=== PATIENT | male | born 1945 | race Caucasian/White ===

== ENCOUNTER 2024-04-16 11:08 | Emergency (ER) | payer OTHER, SELFPAY ==
[2024-04-16 11:11] VITALS: BP 115/73
--- NOTE | 2024-04-16 11:43 | ED.GENMED ---
History of Present Illness
General
Chief Complaint: Fall
Source: patient and spouse
Time Seen by Provider: 04/16/24 11:34
Travel History
Have you had any contact with someone who has COVID-19?: No
Do you have any symptoms of coronavirus? Fever > 100 degrees, chills, cough, shortness of breath, sore throat, loss of taste or smell, muscle aches, or headache?: No
History of Present Illness
History of Present Illness:
79-year-old male presents to the emergency room after suffering a fall. Patient states he tripped while moving trash cans. He fell forward and has pain in his right hand and also landed on his right face where he has abrasions. No loss of
consciousness. Patient does not take any anticoagulants. He denies any nausea or vomiting. His tetanus is up-to-date.
Past History
Past History
ED Past Medical History: Cancer (breast), HTN, Hypercholesterolemia and Hypothyroidism
ED Past Surgical History: Other (Right mastectomy)
Phy Exam
Physical Exam
Physical Exam:
General: Awake, Alert, Oriented X3. No acute distress.
Vitals: unremarkable
Head: Abrasions noted right eyebrow, lateral to orbit and inferior to orbit
Eyes: Pupils equal, EOMI
Throat: Airway intact, no exudates
Neck: Trachea midline
Lungs: Clear and equal b/l
Heart: Regular rate, no murmurs
Abd: Soft, Nontender, No pulsatile mass
Neuro: Cranial nerves intact, muscle strength equal bilaterally
Skin: Warm, dry, no rash
Extremities: pulses equal b/l, no edema. Pain mild ecchymosis noted right hand distal fourth metacarpal are tender to palpation. Patient has mild discomfort with range of motion of the right shoulder.
Course
Orders/Labs/Results
Orders:
Orders
04/16/24 11:40
CT Head W/o Iv Contrast Urgent
Comment:
Reason For Exam: head injury after a fall
Facial Bones wo Contrast CT [CT Facial Bones W/o Iv Contras] Urgent
Comment:
Reason For Exam: fall, facial injury
Hand, Right 3 View [CR Hand - Right Min 3 Views] Urgent
Comment:
Reason For Exam: pain after a fall
04/16/24 12:01
Shoulder, Right, Trauma [CR Shoulder, Trauma - Right] Urgent
Comment:
Reason For Exam: fall, shoulder replacement history
04/16/24 14:31
Acetaminophen [Tylenol] 650 mg PO NOW STA
Vital Signs
Initial and Last Documented VS:
Initial Vital Signs
Temp Pulse Resp BP Pulse Ox
98.1 F 69 18 115/73 97
04/16/24 11:11 04/16/24 11:11 04/16/24 11:11 04/16/24 11:11 04/16/24 11:11
Last Documented Vital Signs
Temp Pulse Resp BP Pulse Ox
98.1 F 69 18 115/73 97
04/16/24 11:11 04/16/24 11:11 04/16/24 11:11 04/16/24 11:11 04/16/24 11:11
MDM/Problems Addressed
Differential Diagnosis Includes:
Humerus fracture, closed head injury, presents, contusion
MDM/Problems Addressed:
Patient presents after a fall. No LOC. CT and plain films here show no acute abnormalities. Patient at his baseline. Stable for discharge home.
*Radiology
Radiology exam reviewed: radiology read reviewed
*Pulse Oximetry
Patient hypoxic: no
*Critical Care Note
Total Time (30-74mins, 75-104mins- exclusive of procedures): Not Applicable
Patient Management
Social determinants of health affecting care: Living situation
ED Attending Note
-
Portions of this chart may have been created with voice recognition software.� Occasional wrong word or��sound alike� substitutions may have occurred due to the inherent limitations of voice recognition software.
Discharge Plan
Departure
Patient Disposition: Home (Routine Discharge)
Date of Disposition: 04/16/24
Time of Disposition: 13:53
Patient with high blood pressure during this ER visit?: No
Condition: Good
Discharge Problem:
Head injury, Abrasion of face, Fx metacarpal
Instructions: Head Injury in Adults (DC), Skin Abrasions (DC)
Prescriptions:
No Action
losartan 50 mg Tablet
50 mg PO HS
cyclobenzaprine 10 mg Tablet
10 mg PO HS
cetirizine [Zyrtec] 10 mg Tablet
10 mg PO DAILY
cyanocobalamin (vitamin B-12) [Vitamin B-12] 1,000 mcg Tablet
1,000 mcg PO DAILY
aspirin 81 mg Tablet,Delayed Release (Dr/Ec)
81 mg PO DAILY
levothyroxine [Synthroid] 25 mcg Tablet
25 mcg PO DAILY
oxycodone-acetaminophen [Percocet] 5-325 mg Tablet
1 tab PO Q4H PRN (Reason: severe pain)
omeprazole 20 mg Capsule,Delayed Release(Dr/Ec)
20 mg PO DAILY
metoprolol succinate [Toprol XL] 25 mg Tablet Extended Release 24 Hr
25 mg PO HS
albuterol sulfate 90 mcg/actuation Hfa Aerosol Inhaler
2 puff INHALATION Q6H PRN (Reason: shortness of breath)
oxybutynin chloride 5 mg Tablet
5 mg PO DAILY
tamoxifen 20 mg Tablet
20 mg PO DAILY
finasteride [Proscar] 5 mg Tablet
5 mg PO DAILY
coenzyme Q10 [CoQ-10] 100 mg Capsule
200 mg PO DAILY
alfuzosin 10 mg Tablet Extended Release 24 Hr
10 mg PO DAILY
metformin 1,000 mg Tablet Extended Release 24hr
1,000 mg PO BID
cholecalciferol (vitamin D3) [Vitamin D3] 25 mcg (1,000 unit) Tablet
25 mcg PO DAILY
budesonide-formoterol [Symbicort] 80-4.5 mcg/actuation Hfa Aerosol Inhaler
2 puff INHALATION BID
Praluent Pen 75 mg/mL Pen Injector
75 mg SC Q14D
Referrals:
Bong Messina DO [Family Provider] -
Hollis Hollingsworth MD [Active] -
Activity Restrictions/Additional Instructions:
The x-rays of the hand show s broken bone in the hand. I have given you the number for a hand specialist to follow up with.
Interventions
Interventions:
*Risk Screen - Suicide Last Done: 04/16/24 12:03
*General Assessment Last Done: 04/16/24 12:03
*Neglect/Abuse Screening Last Done: 04/16/24 12:03
*ED COVID-19 Vaccine History Last Done: 04/16/24 12:03
*Nursing Disposition Last Done: 04/16/24 14:43
ED-Musculoskeletal Assessment Last Done: 04/16/24 12:03
ED- Neurological Assessment Last Done: 04/16/24 12:03
ED-Skin Assessment Last Done: 04/16/24 12:03
Discharge Date and Time
Discharge Date/Time: 04/16/24 14:46
Print Language: UKRAINIAN
[2024-04-16] MEDS: TYLENOL 650 MG PO (14:33)
== END 2024-04-16 14:46 | disposition home or self-care (01) ==
LOC: EMR 11:08
PROVIDERS: EMERGENCY PHYSICIAN Emergency Medicine; FAMILY PHYSICIAN Family Medicine
DX: S62.304A Unspecified fracture of fourth metacarpal bone, right hand, initial encounter for closed fracture (principal); S60.221A Contusion of right hand, initial encounter; S00.211A Abrasion of right eyelid and periocular area, initial encounter; S09.90XA Unspecified injury of head, initial encounter; M25.511 Pain in right shoulder; W01.0XXA Fall on same level from slipping, tripping and stumbling without subsequent striking against object, initial encounter; Y93.89 Activity, other specified; I10 Essential (primary) hypertension; E78.00 Pure hypercholesterolemia, unspecified; E03.9 Hypothyroidism, unspecified; Z85.3 Personal history of malignant neoplasm of breast; Z90.11 Acquired absence of right breast and nipple; Z96.611 Presence of right artificial shoulder joint
CPT/HCPCS: 99284; 29125; 70450; 70486; 73030; 73130

== ENCOUNTER 2024-06-13 10:04 | Inpatient (IN) | payer OTHER, SELFPAY ==
[2024-06-09 12:37] VITALS: BP 114/64
--- NOTE | 2024-06-09 13:20 | ED.GENMED ---
History of Present Illness
General
Chief Complaint: Fall
Source: patient
Exam Limitations: none
Time Seen by Provider: 06/09/24 13:20
Nursing documentation reviewed up to this point in time: agreed with
History of Present Illness
History of Present Illness:
79-year-old male presenting emergency department today with concerns of headache and back pain following a fall. Patient uses a cane at baseline. Patient reports that he was walking to to the grocery store today in the parking lot and was walking
up a ramp and reaching up to grab a metal pole to support him when he missed the pole and fell back, hitting the back of his head and his back. Patient required help from bystanders to get up and he is not able to ambulate without assistance or
pain. His was called he picked him up and took him to emergency department. Patient denies any dizziness or lightheadedness but does note a headache, back pain with any movement, also notes some right lower rib pain. Patient states that this
pain is worse when he takes a deep breath. Patient denies any other injuries, denies any chest pain, denies any lower extremity pain. Patient denies any upper or lower extremity numbness or tingling.
Past History
Past History
ED Past Medical History: Cancer (breast), HTN, Hypercholesterolemia and Hypothyroidism
ED Past Surgical History: Other (Right mastectomy)
Review of Systems
Review of Systems
All Other Systems: ROS reviewed and negative except as documented in HPI and ROS
Phy Exam
Physical Exam
Physical Exam:
General: Patient is well appearing and in no acute distress; non-toxic
Skin: Warm and dry, linear abrasion noted to left parathoracic region.
Head: Normocephalic, atraumatic. No palpable hematomas, no palpable bony deformities. No tenderness to palpation of the facial bones. TMJ joints intact bilaterally.
Eyes: Sclera non-icteric. EOMs intact. PERRLA.
Neck: Pain with passive range of motion of cervical spine. Tenderness to palpation of the cervical spine.
Cardiac: Regular rate, no tenderness to palpation of the external chest wall. No palpable crepitus.
Pulm: Normal respiratory effort
Abdomen: No abdominal tenderness to palpation, no areas of ecchymosis
Musculoskeletal: 5/5 strength in bilateral upper and lower extremities. No pain with ROM of bilateral upper and lower extremities. Midline spinal tenderness in the thoracolumbar spine.
Neuro: CN II-XII intact, no focal neurologic deficits. Normal finger to nose, heel to flores testing.
Psychiatric: Appropriate mood and affect.
Course
Orders/Labs/Results
Orders:
Orders
06/09/24 13:50
CT Cervical Spine W/o Iv Contr Urgent
Comment:
Reason For Exam: neck pain following fall
06/09/24 13:51
CT Head W/o Iv Contrast Urgent
Comment:
Reason For Exam: headache following posterior head trauma
Acetaminophen [Tylenol] 1,000 mg PO NOW STA
CR Lumbar Spine Comp Min 4 Vw* Urgent
Comment:
Reason For Exam: low back pain following fall
CR Ribs-right 3 Vw W/pa Chest* Urgent
Comment:
Reason For Exam: right lower rib pain following fall
CR Thoracic Spine 3 Views Urgent
Comment:
Reason For Exam: mid back pain following fall
06/09/24 Dinner
1800 calorie (15 carb) Diabetic
At Your Request: Full Participation
06/09/24 15:46
Pt Eval And Treat Urgent
Activity Level: With Assistance
06/09/24 15:55
Case Management Consult ONCE
Case Management Consult: VN/Home Care
Oxycodone [Roxicodone] 5 mg PO NOW STA
06/09/24 17:48
Complete Blood Count/With Diff Urgent
Comprehensive Metabolic Panel Urgent
06/09/24 18:19
Admit/Transfer Patient As Directed
Co-Sign Provider:
Level of Care: Observation services
Assign to:: Medical/Surgical
Physician / Group: vignesh chavez
Diagnosis: mechn fall with amb dysfunction
06/09/24 18:20
Code Status As Directed
Resuscitation Status: Full Code
06/09/24 18:24
PRN Pain Medication Management As Directed
May give lesser potent ordered pain med per pt: Yes
preference::
Protocol:: Medication orders for pain may be administered in a
manner that supports deferring to patient preference
when the pt is:
- Requesting an ordered lesser potent pain medication.
Least to most potent pain medications are defined
as: acetaminophen < NSAID < tramadol < opioids
(morphine, oxycodone, hydromorphone).
- Requesting a lesser dose of the same medication IF
ORDERED.
- Requesting a less intrusive route of administration
if both routes are prescribed by the provider (PO <
IV).
06/09/24 19:21
Acetaminophen [Tylenol] 650 mg PO Q4HPRN PRN
Albuterol [ProAIR HFA INHALER] 2 puff INH R Q6HPRN PRN
Dextrose 50%-Water [Dextrose 50% Syringe] 12.5 grams IV [id number] PRN
Glucagon [GlucaGen] 1 mg IM PRN PRN
Meclizine [Antivert] 12.5 mg PO BIDPRN PRN
Oxycodone [Roxicodone] 5 mg PO Q4HPRN PRN
06/09/24 19:21
Activity As Directed
Activity Level: With Assistance
Bedside Glucose Monitoring As Directed
Frequency: AC&HS
Additional Instructions:: Change to q6h if pt on TPN, tube feeding or not eating
Sequential Compression Device [Pneumatic Compression Sleeves] As Directed
Type: Knee high
Vital Signs As Directed
Frequency: Per unit guidelines
Ot Eval And Treat Routine
DX Deep Vein Thrombosis Video Routine
DX Deep Vein Thrombosis Video Routine
06/09/24 20:00
Budesonide/Formoterol 80/4.5 [Symbicort 80/4.5 Mcg Inhaler] 2 puff INH R BID
Metformin Extended Release [Glucophage Xr Extended Release] 1,000 mg PO BID AT 0800,1700
06/09/24 22:00
Cetirizine HCl [Zyrtec] 10 mg PO HS
Cyclobenzaprine HCl [Flexeril] 10 mg PO HS
Losartan [Cozaar] 50 mg PO HS
Metoprolol Xl [Toprol Xl] 25 mg PO HS
06/10/24 06:00
CT Head W/o Iv Contrast IN AM
Comment:
Reason For Exam: repeat due to fall
Levothyroxine [Synthroid] 25 mcg PO DAILY @ 0600
06/10/24 06:10
Basic Metabolic Panel IN AM
Complete Blood Count/With Diff IN AM
Glycohemoglobin (HgbA1c) IN AM
06/10/24 07:30
Insulin Aspart Corrective Low [Novolog Flexpen-Low Resistance] See Protocol SC AC
06/10/24 08:00
Ascorbic Acid [Vitamin C] 1,000 mg PO DAILY
Aspirin Low Dose EC [Aspir Low (Enteric Coated)] 81 mg PO DAILY
Cholecalciferol (Vitamin D3) [VITAMIN D3 (cholecalciferol)] 25 mcg PO DAILY
Cyanocobalamin [Vitamin B-12] 1,000 mcg PO DAILY
Escitalopram Oxalate [Lexapro] 10 mg PO DAILY
Finasteride [Proscar] 5 mg PO DAILY
Oxybutynin Chloride [Ditropan] 5 mg PO DAILY
Pantoprazole [Protonix] 40 mg PO DAILY
Tamoxifen [Nolvadex] 20 mg PO DAILY
Tamsulosin [Flomax] 0.4 mg PO DAILY
coenzyme Q10 [CoQ-10] 200 mg PO DAILY
Abnormal Lab Results
06/09/24
17:48
RBC 4.11 L 10^6/uL
(4.70-6.10)
Hgb 12.8 L g/dL
(13.0-18.0)
Hct 36.0 L %
(39.0-52.0)
MCH 31.1 H pg
(27.0-31.0)
Abs Immat Gran (auto) 0.1 H 10^3/uL
(0-0.05)
Absolute Neuts (auto) 8.5 H 10^3/uL
(1.4-6.5)
Absolute Monos (auto) 0.9 H 10^3/uL
(0.1-0.6)
Immature Gran % 0.9 H %
(0-0.5)
Neutrophils % 78.4 H %
(42.2-75.2)
Lymphocytes % 11.5 L %
(20.5-51.1)
Sodium 131 L mmol/L
(135-145)
Chloride 97 L mmol/L
(98-107)
Glucose 171 H mg/dl
(70-99)
Total Protein 5.9 L g/dl
(6.3-8.2)
Albumin 2.6 L g/dl
(3.5-5.0)
06/09/24 17:48
06/09/24 17:48
Vital Signs
Initial and Last Documented VS:
Initial Vital Signs
Temp Pulse Resp BP Pulse Ox
97.8 F 88 18 114/64 96
06/09/24 12:37 06/09/24 12:37 06/09/24 12:37 06/09/24 12:37 06/09/24 12:37
Last Documented Vital Signs
Temp Pulse Resp BP Pulse Ox
97.9 F 78 15 138/90 95
06/10/24 07:30 06/10/24 08:37 06/10/24 08:37 06/10/24 07:30 06/10/24 08:37
MDM/Problems Addressed
Differential Diagnosis Includes:
ddx include subdural hematoma, epidural hematoma, cervical fracture, thoracic fracture, lumbar fracture, contusion, rib fracture
MDM/Problems Addressed:
Mechanical Fall:
79-year-old male presenting emergency department today with concerns of headache and back pain following a fall. Patient uses a cane at baseline. Patient reports that he was walking to to the grocery store today in the parking lot and was walking
up a ramp and reaching up to grab a metal pole to support him when he missed the pole and fell back, hitting the back of his head and his back. CT of the head negative for acute intracranial abnormality, CT of the cervical spine negative for
fracture but does show extensive degenerative changes. Plain films negative for vertebral fracture. Patient was evaluated by physical therapy who recommends rehab in [facility] considering his significant pain and ambulatory dysfunction. Patient
evaluated by case management who recommends admit overnight for OT eval and for auth of rehab. Patient in agreement with this plan, case reviewed with my attending Dr. Miranda.
Chronic conditions affecting care:
CAD, HTN, diabetes
*Pulse Oximetry
Patient hypoxic: no
*Critical Care Note
Total Time (30-74mins, 75-104mins- exclusive of procedures): Not Applicable
Data Reviewed
Review of Other/Old Records Reveals: Records (reviewed ER physician documentation from 04/16/24 where patient was seen for fall and facial abrasion) and Discharge Summary (reviewed discharge summary from 06/27/22 where patient was admitted for
periprosthetic fracture )
Source: patient and records
Patient Management
Escalation/DeEscalation of care consider admission/obs:
Admit indicated.
Update Note
Update Note:
06/10/2024, 11:00 am-- Called patient's to update on presence of thyroid nodule on CT scan. Patient's reports that patient has had workup for this nodule at [facility] in the past and she states that everything in the workup
came back unremarkable.
ED Attending Note
-
Portions of this chart may have been created with voice recognition software.� Occasional wrong word or��sound alike� substitutions may have occurred due to the inherent limitations of voice recognition software.
Discharge Plan
Departure
Patient Disposition: Admit
Date of Disposition: 06/09/24
Time of Disposition: 17:28
Admit to: Med/Surg
Presentation/result/management discussed w/ accepting MD/DO: Hospitalist
Condition: Fair
Discharge Problem:
Fall, Ambulatory dysfunction
Interventions
Interventions:
*Risk Screen - Suicide Last Done: 06/09/24 12:37
*General Assessment Last Done: 06/09/24 12:37
*Neglect/Abuse Screening Last Done: 06/09/24 12:37
ED- Fall Risk Assessment Last Done: 06/09/24 14:16
*ED COVID-19 Vaccine History Last Done: 06/09/24 19:24
*Nursing Disposition Last Done: 06/09/24 19:24
ED-Musculoskeletal Assessment Last Done: 06/09/24 14:16
ED- Neurological Assessment Last Done: 06/09/24 14:16
ED-Skin Assessment Last Done: 06/09/24 14:16
Discharge Date and Time
Discharge Date/Time: 06/09/24 19:24
[2024-06-09] MEDS: TYLENOL 1000 MG PO (14:09)
[2024-06-09] MEDS: ROXICODONE 5 MG PO ×2 (16:07→21:28)
[2024-06-09 16:25] VITALS: BP 114/64; PULSE 88; O2SAT 96
--- NOTE | 2024-06-09 17:07 | CM ---
Alert awake oriented patient who lives with his [place] who lives in a 3 story home with 3 step to enter and bed and bathroom on first floor. He is independent in all activities of daily living.He uses a walker. He fell. PT narayan says needs SNF.
Spoke with pt and . Pt agreed with SNF . Choice given . Pt picked [facility] , [facility] , [facility], [place]. Referrals placed. ED RN and PA aware of above . Requested OT order . Pt aware will need auth after SNf located.
[facility] hx /No SNF hx
He uses a walker
Pharmacy [facility] Tadeo Mishra
PCP DR Messina
PLAN To SNf after located and auth obtained
[2024-06-09 17:54] LABS: % Basophils 0.4 % (0-2); % Eosinophils 0.7 % (0-6); % Immature Granulocytes 0.9 % (0-0.5); % Lymphocytes 11.5 % (20.5-51.1); % Monocytes 8.1 % (1.7-9.3); % Neutrophils 78.4 % (42.2-75.2); Absolute Eosinophils 0.1 10^3/uL (0-0.7); Absolute Immature Granulocytes 0.1 10^3/uL (0-0.05); Absolute Lymphocytes 1.2 10^3/uL (1.2-3.4); Absolute Monocytes 0.9 10^3/uL (0.1-0.6); Absolute Neutrophils 8.5 10^3/uL (1.4-6.5); Hemoglobin 12.8 g/dL (13.0-18.0); Mean Corp Hgb Conc. 35.6 g/dL (33.0-37.0); Mean Corpuscular Hgb 31.1 pg (27.0-31.0); Mean Corpuscular Volume 87.6 fL (80.0-94.0); Mean Platelet Volume 9.3 fL (7.4-10.4); Nucleated Red Blood Cells % 0 % (-); Platelet Count 137 10^3/uL (130-400); Red Blood Cell Count 4.11 10^6/uL (4.70-6.10); Red Cell Dist. Width 13.3 % (11.5-14.5); White Blood Cell Count 10.8 10^3/uL (4.8-10.8)
--- NOTE | 2024-06-09 18:09 | HPS.HSE ---
Addendum entered and electronically signed by Arnaldo Garcia MD 06/09/24 18:35:
I saw and examined the patient.
The CARPENTER MOLD or PA's note was reviewed and I agree with the note.
Comment:
79-year-old male presenting with headache and back pain after fall.� Patient uses cane at baseline, and was walking to the grocery store today and while attempting to grab a metal pole for support he missed and fell back, hitting the back of his
head and back. �No loss of consciousness, and he was assisted by bystanders to help get him up.� Denies any further dizziness, lightheadedness other than headache, back pain.� Does also note some lower right rib pain, no evidence of flail chest.�
Labs are pending.� Chest x-ray with severe DISH, moderately exaggerated thoracic kyphosis, no acute findings, no evidence of acute rib fractures, does have chronic healed left lateral rib fractures.� CT head unremarkable.� Patient worked with PT and
recommended SNF.� Lives at home with .� Admitted for observation.� Plan�disposition planning, pain control, repeat CT head in 12 hours.� Follow-up lab work.
Original Note:
Family Physician
-
Family Physician: Bong Messina
Chief Complaint
-
Fall, headache
History of Present Illness
79-year-old male who reportedly was walking to the grocery store in a parking lot up a ramp when he went to grab metal pole he missed and fell backward hitting the back of his head and back. Bystanders helped pick him up and place him in the car
with his to come to the ER for evaluation. He reports pain is worse when he takes a deep breath. He reports a headache but denies lightheadedness or dizziness. He states he has had history of recent chronic vertigo has been working with
physical therapy at home. He reports he did have episode of spinning sensation prior to fall today. He denies chest pain, palpitations, short breath, cough, abdominal pain, nausea, vomit, diarrhea, urinary symptoms. He had evaluation in the ER by
physical therapy who recommended SNF facility. He has past medical history of breast cancer with right mastectomy, HTN, HLD, hypothyroidism, DM 2, GERD, BPH, CAD/CABG, COPD, chronic muscle spasms, depression, seasonal allergies
Medical History
Past Medical History
Past Medical History: Reports Other
Additional Past Medical History:
Coronary Artery Disease
Essential Hypertension
Hyperlipidemia
Diabetes Mellitus, Type II
COPD
BPH
Sciatica
Hx Right Breast CA
Past Surgical History: Reports Other
Additional Past Surgical History:
Right Mastectomy
CABG
Right Reverse Total Shoulder Replacement
Social History
Tobacco: Former Smoker (Quit in the 1970s)
Alcohol: None
Personal:
Living: With Family
Family History
Family History: Not pertinent
Allergies / Home Medications
Allergies reflects when Allergies were last updated in [facility].
Home Medications with original date entered in [facility]
Allergy/Medication List:
Allergies
Allergy/AdvReac Type Severity Reaction Status Date / Time
atorvastatin [From Lipitor] AdvReac Mild Nausea / Verified 06/09/24 12:37
Vomiting
lisinopril AdvReac Mild cough Verified 06/09/24 12:37
Home Medications
albuterol sulfate 90 mcg/actuation aerosol inhaler 2 puff inhalation Q6H PRN shortness of breath 06/25/22
alfuzosin 10 mg tablet,extended release 24 hr 10 mg PO DAILY Urinary issue 06/25/22
alirocumab 75 mg/mL subcutaneous pen injector (Praluent Pen) 75 mg SC Q14D High cholesterol 06/25/22
aspirin 81 mg tablet,delayed release 81 mg PO DAILY Blood clot prevention/tx 06/25/22
budesonide-formoterol HFA 80 mcg-4.5 mcg/actuation aerosol inhaler (Symbicort) 2 puff inhalation R BID Lung/breathing issues 06/25/22
cetirizine 10 mg tablet (Zyrtec) 10 mg PO HS Allergies 06/25/22
cholecalciferol (vitamin D3) 25 mcg (1,000 unit) tablet (Vitamin D3) 25 mcg PO DAILY Supplement 06/25/22
coenzyme Q10 100 mg capsule (CoQ-10) 200 mg PO DAILY Supplement 06/25/22
cyanocobalamin (vitamin B-12) 1,000 mcg tablet (Vitamin B-12) 1,000 mcg PO DAILY Supplement 06/25/22
cyclobenzaprine 10 mg tablet 10 mg PO HS Muscle spasms 06/25/22
finasteride 5 mg tablet (Proscar) 5 mg PO DAILY Urinary issue 06/25/22
levothyroxine 25 mcg tablet (Synthroid) 25 mcg PO DAILY Thyroid 06/25/22
losartan 50 mg tablet 50 mg PO HS Blood pressure 06/25/22
metformin 1,000 mg tablet,extended release 24hr (osmotic) 1,000 mg PO BID Diabetes 06/25/22
metoprolol succinate 25 mg tablet,extended release 24 hr (Toprol XL) 25 mg PO HS Blood pressure 06/25/22
omeprazole 20 mg capsule,delayed release 20 mg PO DAILY Gastrointestinal issue 06/25/22
oxybutynin chloride 5 mg tablet 5 mg PO DAILY Urinary issue 06/25/22
oxycodone-acetaminophen 5 mg-325 mg tablet (Percocet) 1 tab PO Q8HPRN PRN severe pain 06/25/22
tamoxifen 20 mg tablet 20 mg PO DAILY 06/25/22
ascorbic acid (vitamin C) 1,000 mg tablet (Vitamin C) 1,000 mg PO DAILY 06/09/24
escitalopram oxalate 10 mg tablet 10 mg PO DAILY 06/09/24
meclizine 12.5 mg tablet 12.5 mg PO BIDPRN PRN dizziness 06/09/24
Review of Systems
-
History Source: Patient
A 12 point ROS was completed and negative except as noted: Yes
Constitutional: Denies Fever, Fatigue or Chills
EENT: Denies Sore Throat or Runny Nose
Respiratory: Denies Cough or Trouble Breathing
Cardiac: Denies Chest Pain, Diaphoresis, Palpitations or Syncope
Abdomen/GI: Denies Abdominal Pain, Nausea, Vomiting, Diarrhea, Constipated, Bloody Stools or Black Stools
: Denies Dysuria, Frequency, Flank Pain, Incontinence, Difficulty Voiding or Urgency
Musculoskeletal: Denies Joint Pain or Edema
Skin: Reports Other (Abrasion left elbow); Denies Itching
Neurological: Reports Headache (Frontal sinus); Denies Dizzy or Weakness
Endocrine: Reports No Symptoms
Hematologic/Lymphatic: Reports No Symptoms
Psych: Reports Calm
Physical Exam
Vital Signs
Vital Signs
Temp Pulse Resp BP Pulse Ox
97.8 F 88 18 114/64 96
06/09/24 12:37 06/09/24 12:37 06/09/24 12:37 06/09/24 12:37 06/09/24 12:37
Physical Exam
General: Comfortable and Conversant; No Pain, Fever or Chills
HEENT: NormoCephalic, Anicteric, Moist mucous membranes, Atraumatic, PERRLA, [place] Conjunctivae, No Ptosis and Neck Nontender
Respiratory: Clear; No Wheezes, Rales or Rhonchi
Cardiac: S1/S2 and Regular Rhythm; No Murmur, Rub, Gallop or Peripheral Edema
Breast: Deferred by me
GI: Soft, Non Tender, Non Distended, Normal Bowel Sounds and No Hepatosplenomegaly
Rectal: Deferred by Provider
Genito-urinary: Deferred by me
Musculoskeletal: No Clubbing, No Cyanosis and No Edema
Skin: Warm, Dry and Other (Abrasion left elbow); No Rash
Neuro: AO x 3, No Motor Deficits, Nonfocal/grossly intact, Cranial Nerves Intact and No Sensory Deficits; No Slurred Speech, Facial Droop, Tremors or Sedated
Psych: Calm
Laboratory Results
-
06/09/24 17:48
Data Reviewed
-
Diagnostic Radiology: Report Reviewed by me
CT Scan: Report Reviewed by me
Lab Data: Labs Reviewed by me
Impression/Plan
-
Impression/plan:
Observation MedSurg
#Mechanical fall with Ambulatory dysfunction/right sided pain
-CT head, neck x-rays lumbar thoracic and ribs all negative
-Tylenol as needed pain
-PT/OT/case management for SNF placement
-repeat head Ct in am
CT neck
Severe DDD C5-C6 right neuroforaminal narrowing C4-C5
#Chronic vertigo
-Continue meclizine as needed
-Patient has been working with home PT
#BPH
-Continue oxybutynin 5 mg daily, pro scar 5 mg daily, alfuzosin 10 mg daily
#HTN
-Continue Toprol XL 25 mg at bedtime, losartan 50 mg at bedtime with hold parameters
#HLd
-Patient on Praluent pen 75 Mg q. 14 days
#CAD/CABG
Continue aspirin 81 mg daily, Praluent pen
#DM2
-Accu-Cheks with SSI, check HgbA1c
-Continue metformin 1000 mg twice daily
#GERD
-Continue omeprazole 20 mg daily
#Hypothyroidism/Hx right lower lobe thyroid nodule 3 cm
-Continue Synthroid 25 mcg p.o. daily
#Chronic muscle spasms
-Continue Flexeril 10 mg at bedtime
#Hx breast cancer with right mastectomy
-Continue tamoxifen 20 mg daily
#Depression
-Continue Lexapro 10 mg daily
#COPD�no acute exacerbation
-Continue Symbicort
#Seasonal allergies
-Continue Zyrtec 10 mg at bedtime
DVT prophylaxis
SCDs
Full code
[2024-06-09 18:17] LABS: ALT (SGPT) 16 U/L (0-50); AST (SGOT) 23 U/L (17-59); Albumin 2.6 g/dl (3.5-5.0); Alkaline Phosphatase 66 U/L (38-126); Blood Urea Nitrogen 16 mg/dl (9-20); Calcium 9.6 mg/dl (8.4-10.2); Carbon Dioxide 27 mmol/L (22-30); Chloride 97 mmol/L (98-107); Glucose 171 mg/dl (70-99); Potassium 3.9 mmol/L (3.5-5.1); Sodium 131 mmol/L (135-145); Total Bilirubin 0.5 mg/dl (0.2-1.3); Total Protein 5.9 g/dl (6.3-8.2); eGFR > 60.00
[2024-06-09] MEDS: SYMBICORT 80/4.5 MCG INHALER 2 PUFF INH (19:50)
[2024-06-09 19:55] VITALS: BP 154/88; BMI 25.7
[2024-06-09 21:10] LABS: Glucose - Point of Care 196 mg/dl (70-99)
[2024-06-09] MEDS: GLUCOPHAGE XR EXTENDED RELEASE 1000 MG PO (21:26)
[2024-06-09] MEDS: ZYRTEC 10 MG PO (21:27)
[2024-06-09] MEDS: FLEXERIL 10 MG PO (21:27)
[2024-06-09] MEDS: COZAAR 50 MG PO (21:27)
[2024-06-09] MEDS: TOPROL XL 25 MG PO (21:27)
--- NOTE | 2024-06-09 21:30 | PTCARENOTE ---
Receive pt from ER. Pt alert oriented x3, in no distress. Pt able to transfer by pivoting from the stretcher to his bed in the room. Pt complains about pain in the lower back and right flank. The pain is 7/10. Pt VSS (T=98.1, HR=97, RR=18,
ZQ=119/88, SpO2=92% on RA). Pt oriented to the room, call sy within reach. Oxycodone 5mg given for pain. Will continue to monitor the pt
[2024-06-09 23:25] VITALS: BP 155/89
[2024-06-10] MEDS: TYLENOL 650 MG PO (05:00)
[2024-06-10] MEDS: SYNTHROID 25 MCG PO (05:00)
[2024-06-10 06:58] LABS: % Basophils 0.4 % (0-2); % Eosinophils 1.2 % (0-6); % Immature Granulocytes 0.9 % (0-0.5); % Lymphocytes 13.2 % (20.5-51.1); % Monocytes 8.5 % (1.7-9.3); % Neutrophils 75.8 % (42.2-75.2); Absolute Eosinophils 0.1 10^3/uL (0-0.7); Absolute Immature Granulocytes 0.1 10^3/uL (0-0.05); Absolute Lymphocytes 1.4 10^3/uL (1.2-3.4); Absolute Monocytes 0.9 10^3/uL (0.1-0.6); Hemoglobin 13.5 g/dL (13.0-18.0); Mean Corp Hgb Conc. 35.5 g/dL (33.0-37.0); Mean Corpuscular Hgb 31.8 pg (27.0-31.0); Mean Corpuscular Volume 89.4 fL (80.0-94.0); Mean Platelet Volume 9.5 fL (7.4-10.4); Nucleated Red Blood Cells % 0 % (-); Platelet Count 139 10^3/uL (130-400); Red Blood Cell Count 4.25 10^6/uL (4.70-6.10); Red Cell Dist. Width 13.4 % (11.5-14.5); White Blood Cell Count 10.6 10^3/uL (4.8-10.8)
[2024-06-10 07:22] LABS: Glucose - Point of Care 148 mg/dl (70-99)
[2024-06-10 07:30] VITALS: BP 138/90
[2024-06-10 07:38] LABS: Blood Urea Nitrogen 13 mg/dl (9-20); Calcium 9.8 mg/dl (8.4-10.2); Carbon Dioxide 26 mmol/L (22-30); Chloride 98 mmol/L (98-107); Estimated Creatinine Clearance 65 ml/min; Glucose 147 mg/dl (70-99); Potassium 3.8 mmol/L (3.5-5.1); Sodium 132 mmol/L (135-145); eGFR > 60.00
[2024-06-10] MEDS: FLOMAX 0.4 MG PO (08:15)
[2024-06-10] MEDS: NOVOLOG FLEXPEN-LOW RESISTANCE SC ×2 (08:15→12:22)
[2024-06-10] MEDS: ASPIR LOW (ENTERIC COATED) 81 MG PO (08:16)
[2024-06-10] MEDS: GLUCOPHAGE XR EXTENDED RELEASE 1000 MG PO ×2 (08:16→17:24)
[2024-06-10] MEDS: VITAMIN C 1000 MG PO (08:16)
[2024-06-10] MEDS: VITAMIN D3 (cholecalciferol) 25 MCG PO (08:16)
[2024-06-10] MEDS: PROTONIX 40 MG PO (08:16)
[2024-06-10] MEDS: LEXAPRO 10 MG PO (08:16)
[2024-06-10] MEDS: DITROPAN 5 MG PO (08:16)
[2024-06-10] MEDS: VITAMIN B-12 1000 MCG PO (08:16)
[2024-06-10] MEDS: PROSCAR 5 MG PO (08:16)
[2024-06-10 08:27] LABS: Hepatitis C Antibody Negative (Negative)
[2024-06-10] MEDS: SYMBICORT 80/4.5 MCG INHALER 2 PUFF INH ×2 (08:32→19:35)
[2024-06-10 09:30] LABS: Glycohemoglobin (HgbA1c) 6.2 % (4.0-5.6)
[2024-06-10] MEDS: NOLVADEX 20 MG PO (09:48)
[2024-06-10] MEDS: ROXICODONE 5 MG PO ×2 (10:07→17:23)
[2024-06-10 11:47] LABS: Glucose - Point of Care 130 mg/dl (70-99)
[2024-06-10] MEDS: LIDOCAINE 4% PATCH 1 PATCH TOPICAL (12:25)
--- NOTE | 2024-06-10 14:05 | W.PN.HOSP.TC ---
Today's Communication/Plan
-
f/u blood cultures, covid
-if covid pos - then clear for dc
if covid neg, f/u blood cultures and await to ensure no other infectious source
low treshold to start abx
Assessment / Plan
Assessment / Plan
Physical Exam
General: Comfortable and Conversant; No Pain, Fever or Chills
HEENT: NormoCephalic, Anicteric, Moist mucous membranes, Atraumatic, PERRLA, [place] Conjunctivae, No Ptosis and Neck Nontender
Respiratory: Clear; No Wheezes, Rales or Rhonchi
Cardiac: S1/S2 and Regular Rhythm; No Murmur, Rub, Gallop or Peripheral Edema
Breast: Deferred by me
GI: Soft, Non Tender, Non Distended, Normal Bowel Sounds and No Hepatosplenomegaly
Rectal: Deferred by Provider
Genito-urinary: Deferred by me
Musculoskeletal: No Clubbing, No Cyanosis and No Edema
Skin: Warm, Dry and Other (Abrasion left elbow); No Rash
Neuro: AO x 3, No Motor Deficits, Nonfocal/grossly intact, Cranial Nerves Intact and No Sensory Deficits; No Slurred Speech, Facial Droop, Tremors or Sedated
Psych: Calm
#Mechanical fall with Ambulatory dysfunction/right sided pain
-CT head, neck x-rays lumbar thoracic and ribs all negative for acute pathology
-Tylenol as needed pain
-PT/OT/case management for SNF placement
-repeat ct head neg for acute pathology
#Chronic vertigo
-Continue meclizine as needed
-Patient has been working with home PT
#Febrile Episode
-F/u SARS-CoV-2
-f/u blood cultures
-may be related to recent fall, hemodynamically stable
-Can f/u with fever curve, wbc and hold on abx; defervesed on its own
-low threshold to start abx
#Hyponatremia
-mild
-ctm
#BPH
-Continue oxybutynin 5 mg daily, pro scar 5 mg daily, alfuzosin 10 mg daily
#HTN
-Continue Toprol XL 25 mg at bedtime, losartan 50 mg at bedtime with hold parameters
#HLd
-Patient on Praluent pen 75 Mg q. 14 days
#CAD/CABG
Continue aspirin 81 mg daily, Praluent pen
#DM2
-Accu-Cheks with SSI, check HgbA1c
-Continue metformin 1000 mg twice daily
#GERD
-Continue omeprazole 20 mg daily
#Hypothyroidism/Hx right lower lobe thyroid nodule 3 cm
-Continue Synthroid 25 mcg p.o. daily
#Chronic muscle spasms
-Continue Flexeril 10 mg at bedtime
#Hx breast cancer with right mastectomy
-Continue tamoxifen 20 mg daily
#Depression
-Continue Lexapro 10 mg daily
#COPD�no acute exacerbation
-Continue Symbicort
#Seasonal allergies
-Continue Zyrtec 10 mg at bedtime
DVT prophylaxis
SCDs
Anticipated Discharge: Within 24 hours
Subjective/Interval History
-
Date of Service: June 10, 2024
no acute events
Objective Data
-
Labs:
Laboratory Results
06/10/24
06:10
WBC 10.6
Hgb 13.5
Hct 38.0 L
Plt Count 139
Sodium 132 L
Potassium 3.8
Chloride 98
Carbon Dioxide 26
BUN 13
Creatinine 0.9
Glucose 147 H
Calcium 9.8
Vital Signs:
Vital Signs
Temp Pulse Resp BP Pulse Ox
97.9 F 78 15 138/90 95
06/10/24 07:30 06/10/24 08:37 06/10/24 08:37 06/10/24 07:30 06/10/24 08:37
I&O
06/09/24 06/10/24 06/11/24
06:59 06:59 06:59
Intake Total 0 / 0
Output Total 755 / 755
Balance -755 / -755
Review of Systems
-
History Source: Patient
All other systems: Not reviewed unless documented
Physical Exam
-
General: Well Developed and Well Nourished
HEENT: Normocephalic
Respiratory: Negative Wheezes, Rales or Rhonchi
Cardiac: Regular Rhythm and S1/S2
Genito-urinary: No Costovertebral Tender
Musculoskeletal: Other
Neuro: AO x 3
Hematologic / Lymphatic: No Lymphadenopathy
Psych: Calm
Data Reviewed
-
Diagnostic Radiology: Image personally visualized and interpreted and Report Reviewed by me
Labs: Labs Reviewed by me
[2024-06-10 14:30] VITALS: BP 132/93; PULSE 117
[2024-06-10 15:26] VITALS: BP 143/82
[2024-06-10 15:29] LABS: COVID-19 Antigen Negative (Negative)
--- NOTE | 2024-06-10 15:35 | CM ---
CM met with David and his at bedside. David fell when walking into a grocery store, resulting in hospitalization. He is typically (I) with a cane, but also has a rollator that he has not used. He is in a lot of pain with movement and will
not be able to return home at discharge.
SNF transfer planned; options provided to patient and his and preference was for [facility]. Jinny at [facility] accepted for transfer today. SNF authorization obtained for transfer; Jennie was the reviewer, provided auth #[id number]; 7 days
approved
06/10-06/16/2024 with updates to be called to [phone].
Discharge now on hold due to fever. CM will continue to follow to coordinate transfer to available SNF bed when medically cleared.
Plan: SNF transfer when medically cleared; will need to do bed search and obtain new authorization at that time.
[2024-06-10 17:20] LABS: Glucose - Point of Care 162 mg/dl (70-99)
[2024-06-10] MEDS: NOVOLOG FLEXPEN-LOW RESISTANCE 1 UNITS SC (17:25)
[2024-06-10] MEDS: COZAAR 50 MG PO (21:07)
[2024-06-10] MEDS: ZYRTEC 10 MG PO (21:08)
[2024-06-10] MEDS: FLEXERIL 10 MG PO (21:08)
[2024-06-10] MEDS: TOPROL XL 25 MG PO (21:08)
[2024-06-10 21:37] LABS: Glucose - Point of Care 143 mg/dl (70-99)
[2024-06-10 23:47] VITALS: BP 165/104
--- NOTE | 2024-06-11 00:55 | PTCARENOTE ---
1220 pt b/p 149-160/98-100, pulse ox 91% RA,pt not c/o SOB, but noted to be mouth breathing while he sleeps. pt placed on 3 l o2 94%, weaned down to 1L 91-92% david Stuart to make aware. no additional orders at this time.
[2024-06-11] MEDS: ROXICODONE 5 MG PO (03:21)
[2024-06-11] MEDS: SYNTHROID 25 MCG PO (05:30)
[2024-06-11] MEDS: SYMBICORT 80/4.5 MCG INHALER 2 PUFF INH ×2 (07:21→19:26)
[2024-06-11 07:45] VITALS: BP 128/88
[2024-06-11 08:22] LABS: Glucose - Point of Care 145 mg/dl (70-99)
[2024-06-11 08:55] LABS: Hematocrit 37.9 % (39.0-52.0); Hemoglobin 13.4 g/dL (13.0-18.0); Mean Corp Hgb Conc. 35.4 g/dL (33.0-37.0); Mean Corpuscular Hgb 31.8 pg (27.0-31.0); Mean Corpuscular Volume 89.8 fL (80.0-94.0); Mean Platelet Volume 9.5 fL (7.4-10.4); Platelet Count 139 10^3/uL (130-400); Red Blood Cell Count 4.22 10^6/uL (4.70-6.10); Red Cell Dist. Width 13.6 % (11.5-14.5); White Blood Cell Count 10.5 10^3/uL (4.8-10.8)
[2024-06-11] MEDS: NOVOLOG FLEXPEN-LOW RESISTANCE SC ×3 (09:01→17:26)
[2024-06-11] MEDS: VITAMIN C 1000 MG PO (09:06)
[2024-06-11] MEDS: GLUCOPHAGE XR EXTENDED RELEASE 1000 MG PO ×2 (09:06→16:48)
[2024-06-11] MEDS: VITAMIN B-12 1000 MCG PO (09:06)
[2024-06-11] MEDS: LEXAPRO 10 MG PO (09:06)
[2024-06-11] MEDS: PROTONIX 40 MG PO (09:06)
[2024-06-11] MEDS: DITROPAN 5 MG PO (09:06)
[2024-06-11] MEDS: VITAMIN D3 (cholecalciferol) 25 MCG PO (09:07)
[2024-06-11] MEDS: LIDOCAINE 4% PATCH 1 PATCH TOPICAL (09:07)
[2024-06-11] MEDS: ASPIR LOW (ENTERIC COATED) 81 MG PO (09:07)
[2024-06-11] MEDS: PROSCAR 5 MG PO (09:07)
[2024-06-11] MEDS: FLOMAX 0.4 MG PO (09:07)
[2024-06-11] MEDS: NOLVADEX 20 MG PO (09:35)
[2024-06-11] MEDS: TYLENOL 650 MG PO ×2 (09:35→16:46)
[2024-06-11 10:42] LABS: ALT (SGPT) 14 U/L (0-50); AST (SGOT) 22 U/L (17-59); Albumin 3.9 g/dl (3.5-5.0); Alkaline Phosphatase 51 U/L (38-126); Blood Urea Nitrogen 16 mg/dl (9-20); Calcium 9.5 mg/dl (8.4-10.2); Carbon Dioxide 25 mmol/L (22-30); Chloride 96 mmol/L (98-107); Estimated Creatinine Clearance 65 ml/min; Glucose 134 mg/dl (70-99); Potassium 4.2 mmol/L (3.5-5.1); Sodium 131 mmol/L (135-145); Total Protein 5.8 g/dl (6.3-8.2); eGFR > 60.00
[2024-06-11 13:54] LABS: Glucose - Point of Care 125 mg/dl (70-99)
--- NOTE | 2024-06-11 14:38 | W.PN.HOSP.TC ---
Today's Communication/Plan
-
f//u cultures
monitor fever curve
Assessment / Plan
Assessment / Plan
Physical Exam
General: Comfortable and Conversant; No Pain, Fever or Chills
HEENT: NormoCephalic, Anicteric, Moist mucous membranes, Atraumatic, PERRLA, [place] Conjunctivae, No Ptosis and Neck Nontender
Respiratory: Clear; No Wheezes, Rales or Rhonchi
Cardiac: S1/S2 and Regular Rhythm; No Murmur, Rub, Gallop or Peripheral Edema
Breast: Deferred by me
GI: Soft, Non Tender, Non Distended, Normal Bowel Sounds and No Hepatosplenomegaly
Rectal: Deferred by Provider
Genito-urinary: Deferred by me
Musculoskeletal: No Clubbing, No Cyanosis and No Edema
Skin: Warm, Dry and Other (Abrasion left elbow); No Rash
Neuro: AO x 3, No Motor Deficits, Nonfocal/grossly intact, Cranial Nerves Intact and No Sensory Deficits; No Slurred Speech, Facial Droop, Tremors or Sedated
Psych: Calm
#Mechanical fall with Ambulatory dysfunction/right sided pain
-CT head, neck x-rays lumbar thoracic and ribs all negative for acute pathology
-Tylenol as needed pain
-PT/OT/case management for SNF placement
-repeat ct head neg for acute pathology
#Chronic vertigo
-Continue meclizine as needed
-Patient has been working with home PT
#Febrile Episode
-F/u SARS-CoV-2 negative
-f/u blood cultures
-may be related to recent fall v viral, hemodynamically stable
-Can f/u with fever curve, wbc and hold on abx; defervesed on its own
-low threshold to start abx
#Hyponatremia
-mild
-ctm
#BPH
-Continue oxybutynin 5 mg daily, pro scar 5 mg daily, alfuzosin 10 mg daily
#HTN
-Continue Toprol XL 25 mg at bedtime, losartan 50 mg at bedtime with hold parameters
#HLd
-Patient on Praluent pen 75 Mg q. 14 days
#CAD/CABG
Continue aspirin 81 mg daily, Praluent pen
#DM2
-Accu-Cheks with SSI, check HgbA1c
-Continue metformin 1000 mg twice daily
#GERD
-Continue omeprazole 20 mg daily
#Hypothyroidism/Hx right lower lobe thyroid nodule 3 cm
-Continue Synthroid 25 mcg p.o. daily
#Chronic muscle spasms
-Continue Flexeril 10 mg at bedtime
#Hx breast cancer with right mastectomy
-Continue tamoxifen 20 mg daily
#Depression
-Continue Lexapro 10 mg daily
#COPD�no acute exacerbation
-Continue Symbicort
#Seasonal allergies
-Continue Zyrtec 10 mg at bedtime
DVT prophylaxis
HSQ
Anticipated Discharge: Within 24 hours
Subjective/Interval History
-
Date of Service: June 11, 2024
no acute events; monitoring for fever
Objective Data
-
Labs:
Laboratory Results
06/11/24
08:14
WBC 10.5
Hgb 13.4
Hct 37.9 L
Plt Count 139
Sodium 131 L
Potassium 4.2
Chloride 96 L
Carbon Dioxide 25
BUN 16
Creatinine 0.9
Glucose 134 H
Calcium 9.5
Total Bilirubin 1.0
AST 22
ALT 14
Alkaline Phosphatase 51
Vital Signs:
Vital Signs
Temp Pulse Resp BP Pulse Ox
97.8 F 108 20 128/88 91
06/11/24 07:45 06/11/24 07:45 06/11/24 07:45 06/11/24 07:45 06/11/24 07:45
I&O
06/10/24 06/11/24 06/12/24
06:59 06:59 06:59
Intake Total 0 / 0 240 / 240
Output Total 755 / 755 540 / 540
Balance -755 / -755 -300 / -300
Review of Systems
-
History Source: Patient
All other systems: Not reviewed unless documented
Physical Exam
-
General: Well Developed and Well Nourished
HEENT: Normocephalic
Respiratory: Negative Wheezes, Rales or Rhonchi
Cardiac: Regular Rhythm and S1/S2
Genito-urinary: No Costovertebral Tender
Musculoskeletal: Other
Neuro: AO x 3
Hematologic / Lymphatic: No Lymphadenopathy
Psych: Calm
Data Reviewed
-
Diagnostic Radiology: Image personally visualized and interpreted and Report Reviewed by me
Labs: Labs Reviewed by me
[2024-06-11 15:52] VITALS: BP 123/88
--- NOTE | 2024-06-11 16:26 | CM ---
CM spoke with Nannette at [facility] today. SNF bed is available for transfer tomorrow, 06/12/2024 at 3PM.
Call to [facility] to check if authorization needs to be updated; advised by [facility] that auth is still good for transfer to [facility].
Auth #[id number] for DOS 06/10-06/16/2024 with updates to be called to [phone]. Dates not changed; [facility] states auth can be extended past 06/16/2024 based on clinical at that time.f
Plan for transfer to [facility] tomorrow via w/c van.
Report: [phone]
[2024-06-11 16:32] VITALS: BP 146/95; PULSE 110; O2SAT 95
[2024-06-11] MEDS: HEPARIN 5000 UNITS SC (16:47)
[2024-06-11] MEDS: ULTRAM 25 MG PO (17:22)
[2024-06-11 17:26] LABS: Glucose - Point of Care 147 mg/dl (70-99)
--- NOTE | 2024-06-11 19:15 | PTCARENOTE ---
patient with incoordination of hand when trying to feed himself dinner, ataxia noted of left arm, none on right, slight right facial droop noted at rest but not visible with smile. says he is not himself. vitals noted, remains afebrile. pox 93%
on 1liter oxygen. slight dyspnea noted after turning in bed, recovers quickly. Dr Garcia made aware and ordered stat CT of head. patient taken to CT, awaiting results. night time babysitter nurse made aware of above. plan of care ongoing.
--- NOTE | 2024-06-11 20:51 | PTCARENOTE ---
Pt returned from CT and CT negative. Pt alert and oriented x3. Pt states that prior to going down for CT he looked out the window and saw the trees spinning. Confirmed with pt that he has vertigo and pt states this is what it feels like. Pt states
feeling is gone for now. Pt has equal hand grasps. does have hand tremors and is slightly uncoordinated with finger-nose touch L>R. Equal strength in legs. Smile symmetrical. Tongue midline. No pronator drift noted. Will continue to monitor.
[2024-06-11 21:27] LABS: Glucose - Point of Care 153 mg/dl (70-99)
[2024-06-11] MEDS: ZYRTEC 10 MG PO (22:48)
[2024-06-11] MEDS: FLEXERIL 10 MG PO (22:48)
[2024-06-11] MEDS: COZAAR 50 MG PO (22:52)
[2024-06-11] MEDS: TOPROL XL 25 MG PO (22:53)
[2024-06-11 23:00] VITALS: BP 167/99
[2024-06-12] MEDS: HEPARIN 5000 UNITS SC ×3 (00:04→17:38)
--- NOTE | 2024-06-12 05:36 | PTCARENOTE ---
No change in assessment as charted last evening.
[2024-06-12] MEDS: SYNTHROID 25 MCG PO (05:45)
[2024-06-12 07:15] VITALS: BP 164/97
[2024-06-12 07:20] LABS: Glucose - Point of Care 151 mg/dl (70-99)
[2024-06-12] MEDS: SYMBICORT 80/4.5 MCG INHALER 2 PUFF INH ×2 (07:26→19:31)
[2024-06-12 08:12] LABS: Hematocrit 36.6 % (39.0-52.0); Hemoglobin 13.2 g/dL (13.0-18.0); Mean Corp Hgb Conc. 36.1 g/dL (33.0-37.0); Mean Corpuscular Hgb 31.4 pg (27.0-31.0); Mean Corpuscular Volume 87.1 fL (80.0-94.0); Mean Platelet Volume 9.8 fL (7.4-10.4); Platelet Count 157 10^3/uL (130-400); Red Cell Dist. Width 13.2 % (11.5-14.5); White Blood Cell Count 11.4 10^3/uL (4.8-10.8)
[2024-06-12 08:45] LABS: ALT (SGPT) 14 U/L (0-50); AST (SGOT) 25 U/L (17-59); Albumin 3.9 g/dl (3.5-5.0); Alkaline Phosphatase 54 U/L (38-126); Blood Urea Nitrogen 18 mg/dl (9-20); Calcium 9.6 mg/dl (8.4-10.2); Carbon Dioxide 22 mmol/L (22-30); Chloride 94 mmol/L (98-107); Estimated Creatinine Clearance 74 ml/min; Glucose 146 mg/dl (70-99); Potassium 4.2 mmol/L (3.5-5.1); Sodium 127 mmol/L (135-145); Total Bilirubin 1.3 mg/dl (0.2-1.3); eGFR > 60.00
[2024-06-12] MEDS: LIDOCAINE 4% PATCH 1 PATCH TOPICAL (09:43)
[2024-06-12] MEDS: NOVOLOG FLEXPEN-LOW RESISTANCE SC ×4 (09:51→17:45)
[2024-06-12] MEDS: GLUCOPHAGE XR EXTENDED RELEASE 1000 MG PO (10:49)
[2024-06-12] MEDS: FLOMAX 0.4 MG PO (10:49)
[2024-06-12] MEDS: PROTONIX 40 MG PO (10:49)
[2024-06-12] MEDS: NOLVADEX 20 MG PO (10:50)
[2024-06-12] MEDS: DITROPAN 5 MG PO (10:50)
[2024-06-12] MEDS: PROSCAR 5 MG PO (10:51)
[2024-06-12] MEDS: ASPIR LOW (ENTERIC COATED) 81 MG PO (10:51)
[2024-06-12] MEDS: VITAMIN B-12 1000 MCG PO (10:51)
[2024-06-12] MEDS: VITAMIN C 1000 MG PO (10:51)
[2024-06-12] MEDS: LEXAPRO 10 MG PO (10:52)
[2024-06-12] MEDS: VITAMIN D3 (cholecalciferol) 25 MCG PO (10:52)
[2024-06-12 11:51] LABS: Glucose - Point of Care 170 mg/dl (70-99)
--- NOTE | 2024-06-12 12:06 | CM ---
Addendum entered by Romy Curtis 06/12/24 12:26:
CM met with David and his at bedside to discuss continued hospitalization and discharge plans. David is still having confusion and difficulty with his speech and articulation. believes an MRI is going to be done.
At this time transfer to [facility] is cancelled. CM will follow to facilitate rehab needs.
Original Note:
CM contacted Dr. Garcia to discuss discharge to [facility]. At this time David will be remaining at the hospital for continued care.
[facility] notified of transfer being cancelled.
CM will continue to follow to assist with SNF transfer when David is medically ready for same.
Plan: Discharge to SNF when medically ready. Will need to determine available facilities as patient moves closer to discharge.
[2024-06-12 13:40] LABS: Urine Albumin Trace (Neg - Trace); Urine Bilirubin Negative (Negative); Urine Character Clear (Clear); Urine Color Yellow; Urine Glucose Negative (Negative); Urine Ketone 3+ (Negative); Urine Leukocyte Negative (Negative); Urine Nitrite Negative (Negative); Urine Occult Blood Negative (Negative); Urine Urobilinogen Negative (Neg - 1+)
--- NOTE | 2024-06-12 13:44 | W.PN.HOSP.TC ---
Today's Communication/Plan
-
MR Brain
Haldol iv prn
hold on sedatives
Neuro consulted
TSH w/ reflex
Assessment / Plan
Assessment / Plan
Physical Exam
General: Comfortable and Conversant; No Pain, Fever or Chills
HEENT: NormoCephalic, Anicteric, Moist mucous membranes, Atraumatic, PERRLA, [place] Conjunctivae, No Ptosis and Neck Nontender
Respiratory: Clear; No Wheezes, Rales or Rhonchi
Cardiac: S1/S2 and Regular Rhythm; No Murmur, Rub, Gallop or Peripheral Edema
Breast: Deferred by me
GI: Soft, Non Tender, Non Distended, Normal Bowel Sounds and No Hepatosplenomegaly
Rectal: Deferred by Provider
Genito-urinary: Deferred by me
Musculoskeletal: No Clubbing, No Cyanosis and No Edema
Skin: Warm, Dry and Other (Abrasion left elbow); No Rash
Neuro: AO x 3, No Motor Deficits, Nonfocal/grossly intact, Cranial Nerves Intact and No Sensory Deficits; No Slurred Speech, Facial Droop, Tremors or Sedated
Psych: Calm
#Acute metabolic encephalopathy
� Unclear source
� Possible etiologies include hyponatremia although doubt as severity of hyponatremia is minimal; CVA v possible CSF infectious source
� Follow-up UA, still pending
� UA negative
- neurology consult�May benefit from spinal tap due to initial febrile episode upon admission
�Stop cetirizine, cyclobenzaprine
� Haldol IV as needed
-MR Brain
-F/u TSH
#Mechanical fall with Ambulatory dysfunction/right sided pain
� May be related to above, acute metabolic encephalopathy
-CT head, neck x-rays lumbar thoracic and ribs all negative for acute pathology
-Tylenol as needed pain
-PT/OT/case management for SNF placement
#Chronic vertigo
-Continue meclizine as needed
-Patient has been working with home PT
#Febrile Episode
-F/u SARS-CoV-2 negative
-f/u blood cultures
-may be related to recent fall v viral, hemodynamically stable
-Can f/u with fever curve, wbc and hold on abx; defervesed on its own
-see plan above for acute metabolic encephalopathy
#Hyponatremia
-mild
-Pending urine sodium, urine creatinine
#BPH
-Continue oxybutynin 5 mg daily, pro scar 5 mg daily, alfuzosin 10 mg daily
#HTN
-Continue Toprol XL 25 mg at bedtime, losartan 50 mg at bedtime with hold parameters
#HLd
-Patient on Praluent pen 75 Mg q. 14 days
#CAD/CABG
Continue aspirin 81 mg daily, Praluent pen
#DM2
-Accu-Cheks with SSI, check HgbA1c
-Continue metformin 1000 mg twice daily
#GERD
-Continue omeprazole 20 mg daily
#Hypothyroidism/Hx right lower lobe thyroid nodule 3 cm
-Continue Synthroid 25 mcg p.o. daily
#Chronic muscle spasms
-stop Flexeril 10 mg at bedtime due to change in mental status
#Hx breast cancer with right mastectomy
-Continue tamoxifen 20 mg daily
#Depression
-Continue Lexapro 10 mg daily
#COPD�no acute exacerbation
-Continue Symbicort
#Seasonal allergies
-stop Zyrtec 10 mg at bedtime due to changes in mental status
DVT prophylaxis
HSQ
Total time spent on today's encounter was 50 minutes which included time spent in counseling the patient/family regarding diagnosis and treatment plan as listed above, goals of care, and symptom management. Case was discussed with nursing staff,
specialists, and care coordinators/case management. All labs and imaging personally reviewed by me. Remainder the time spent in detailed review of previous records, lab data, imaging, and other medical provider documentation.
Anticipated Discharge: > 48 hours
Subjective/Interval History
-
Date of Service: June 12, 2024
More altered today
Objective Data
-
Labs:
Laboratory Results
06/12/24
06:41
WBC 11.4 H
Hgb 13.2
Hct 36.6 L
Plt Count 157
Sodium 127 L
Potassium 4.2
Chloride 94 L
Carbon Dioxide 22
BUN 18
Creatinine 0.8
Glucose 146 H
Calcium 9.6
Total Bilirubin 1.3
AST 25
ALT 14
Alkaline Phosphatase 54
Vital Signs:
Vital Signs
Temp Pulse Resp BP Pulse Ox
97.7 F 100 16 164/97 95
06/12/24 07:15 06/12/24 07:27 06/12/24 07:27 06/12/24 07:15 06/12/24 07:27
I&O
06/11/24 06/12/24 06/13/24
06:59 06:59 06:59
Intake Total 240 / 240
Output Total 540 / 540 750 / 750
Balance -300 / -300 -750 / -750
Review of Systems
-
History Source: Patient
All other systems: Not reviewed unless documented
Physical Exam
-
General: Well Developed and Well Nourished
HEENT: Normocephalic
Respiratory: Negative Wheezes, Rales or Rhonchi
Cardiac: Regular Rhythm and S1/S2
Genito-urinary: No Costovertebral Tender
Musculoskeletal: Other
Neuro: AO x 3
Hematologic / Lymphatic: No Lymphadenopathy
Psych: Calm
[2024-06-12] MEDS: LR 1000 IV (14:25)
[2024-06-12 14:29] LABS: Urine Sodium 108 mmol/L (30-90)
[2024-06-12 14:29] LABS: TSH Reflex To Free T4 2.67 uIU/ml (0.47-4.68)
[2024-06-12] MEDS: TYLENOL 650 MG PO (14:54)
[2024-06-12 15:27] VITALS: BP 179/100
[2024-06-12 16:35] LABS: COVID-19 Antigen Negative (Negative)
[2024-06-12 17:30] VITALS: BP 151/98
[2024-06-12 17:36] LABS: Glucose - Point of Care 157 mg/dl (70-99)
[2024-06-12] MEDS: GLUCOPHAGE XR EXTENDED RELEASE PO (17:42)
[2024-06-12 17:58] LABS: Blood Urea Nitrogen 16 mg/dl (9-20); Calcium 9.3 mg/dl (8.4-10.2); Carbon Dioxide 25 mmol/L (22-30); Chloride 91 mmol/L (98-107); Estimated Creatinine Clearance 74 ml/min; Glucose 162 mg/dl (70-99); Sodium 124 mmol/L (135-145); eGFR > 60.00
[2024-06-12 21:55] VITALS: BP 162/101
[2024-06-12] MEDS: COZAAR 50 MG PO (21:58)
[2024-06-12] MEDS: TOPROL XL 25 MG PO (21:58)
[2024-06-12] MEDS: ULTRAM 25 MG PO (21:58)
[2024-06-12 23:11] VITALS: BP 161/109
[2024-06-12] MEDS: LOPRESSOR 5 MG IV (23:38)
[2024-06-13 00:34] LABS: Glucose - Point of Care 152 mg/dl (70-99)
[2024-06-13] MEDS: HEPARIN 5000 UNITS SC ×4 (00:37→23:18)
[2024-06-13] MEDS: NOVOLOG FLEXPEN-LOW RESISTANCE 1 UNITS SC (00:37)
[2024-06-13 00:52] VITALS: BP 160/90
[2024-06-13 05:48] LABS: Glucose - Point of Care 148 mg/dl (70-99)
[2024-06-13] MEDS: NOVOLOG FLEXPEN-LOW RESISTANCE SC ×3 (05:48→18:03)
[2024-06-13] MEDS: SYNTHROID 25 MCG PO (05:49)
[2024-06-13] MEDS: SYMBICORT 80/4.5 MCG INHALER 2 PUFF INH ×2 (07:06→20:26)
--- NOTE | 2024-06-13 07:43 | CON.NEURO4 ---
Addendum entered and electronically signed by Halley España DO 06/13/24 17:52:
I have personally examined the patient. I agree with the INDUSTRIAL DESIGN ENGINEER's Note.
My addenda:
79 year-old male with recent fall, found to be hyponatremia, being seen by nephrology. Agree with majority of exam documented below-- He follows some basic commands but not more complex commands; exhibits incoherent dysarthric speech. Also
exhibited BUE and BLE tremulous movements which were not synchronous. Symptoms may be due to hyponatremia.
MRI brain showed no acute findings to explain his presentation.
EEG showed diffuse slowing; abnormal movements were not clearly epileptiform on EEG.
Consider LP if he does not improve.
Will c/t follow.
Original Note:
Consultation - Neurology 4
-
CONSULTING PHYSICIAN: Dr. Halley España
REFERRING PHYSICIAN: Dr. Arnaldo Garcia
DICTATED BY: NELIDA Swanson
DATE/TIME OF REQUEST: 06/12/2024
DATE/TIME OF CONSULTATION: 06/13/2024
Reason for Consultation: increased confusion, ?LP
History of Present Illness:
This is a 79 year old male who has presented to the hospital after fall in the grocery store. Per chart review patient was in the grocery store walking up a ramp when he reached for a pole and missed falling backwards hitting his head. Fall was
felt to be mechanical. No loss or consciousness. No seizure activity. He was assisted by bystanders. They assisted him to his car and was brought to the hospital by his . His biggest complaint was right lower rib pain, worse with breathing.
CT head, neck x-rays lumbar thoracic and ribs all negative for acute pathology. In the ER he was evaluated by physical therapy who felt he needed SNF versus going home with his . He was admitted to the hospital. During hospitalization he has
become increasingly more confused. Due to increase his confusion some of the medications have been discontinued including cyclobenzaprine and cetirizine. He has run a low grade fever 100.7. COVID test x2 neg. Testing so far has not shown source
of infection. Today he is hyponatremic at 124. Of note patient did have a fall in March 2024 tripping while bringing in his trash cans and hitting his face.
Past Medical History: Reports Other
Additional Past Medical History:
Coronary Artery Disease
Essential Hypertension
Hyperlipidemia
Diabetes Mellitus, Type II
COPD
BPH
Sciatica
Hx Right Breast CA
Past Surgical History: Reports Other
Additional Past Surgical History:
Right Mastectomy
CABG
Right Reverse Total Shoulder Replacement
Social History
Tobacco: Former Smoker (Quit in the )
Alcohol: None
Personal:
Living: With Family
Family History
Family History: Not pertinent:
Allergies: see below
Home Medications: see below
Review of Symptoms:
Patient denies any fever, headache, chest pain, shortness of breath, GI or symptoms.
�
Vital Signs: see below
Physical Exam:
The patient is afebrile, heart sounds S1 and S2 are regular, and chest is clear to auscultation bilaterally. Dry mucous membranes.
Neurologic Examination:
The patient is awake, alert and oriented to self. He closes his eyes after verbal stimulation. He is able to follow some commands and some answer questions appropriately. There is no aphasia or dysarthria. On cranial nerve assessment, pupils are 3
mm bilateral, round and reactive to light and accommodation. Unable to test glover are full. Extraocular movements are intact. Facial sensations are intact and bilaterally symmetrical, there is no facial asymmetry. Hearing is intact bilaterally to
normal conversation volume. Tongue palate and uvula are midline. Sternocleidomastoid strengths are full bilaterally. Moves all extremities spontaneously. Sensations of light touch, temperature and vibration are intact and bilaterally symmetrical.
There was no extinction noted on double simultaneous stimulation. Coordination is intact by finger to nose bilaterally.
Lab Results: see below
Neuro Imaging: CT head 06/11/2024-No evidence of acute intracranial abnormality.
CT head 06/10/2024-No acute intracranial abnormalities or interval change.
CT head 06/09/2024-
1. No CT evidence for acute intracranial hemorrhage or scalp soft tissue hematoma.
2. Severe white matter leukoaraiosis in both cerebral hemispheres.
3. 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
4. Mild diffuse cerebral and cerebellar volume loss.
Impression:
NARCISO MAURICIO is a 79 year old M who has presented to the hospital s/p fall, thought to be mechanical, now with increased confusion.
Differentials for the patient's presentation include:
TME though no source of infection has yet to be found
Seizure in the setting of elderly patient and low sodium
Hospital delirium/exacerbation of underlying dementia/medication
Recommendations:
-MRI brain ordered-if stoke noted on MRI brain will order rest of stroke work up
-Routine EEG, if seizure noted on EEG will order AED
-Consider LP
-will check B12, folate
-can continue Haldol for agitation
-avoid narcotics and sedation if possible
-continue PT/OT/speech evaluations
-continue fall precautions
-DVT prophylaxis
Discussed patient care with nursing and neurologist, Dr. España
Medication and Allergies
Home Medications
Home Medications
�Medication �Instructions �Recorded
albuterol sulfate 90 mcg/actuation 2 puff inhalation Q6H PRN 06/25/22
aerosol inhaler shortness of breath
alfuzosin 10 mg tablet,extended 10 mg PO DAILY Urinary issue 06/25/22
release 24 hr
alirocumab 75 mg/mL subcutaneous 75 mg SC Q14D High cholesterol 06/25/22
pen injector (Praluent Pen)
aspirin 81 mg tablet,delayed 81 mg PO DAILY Blood clot 06/25/22
release prevention/tx
budesonide-formoterol HFA 80 2 puff inhalation R BID 06/25/22
mcg-4.5 mcg/actuation aerosol Lung/breathing issues
inhaler (Symbicort)
cetirizine 10 mg tablet (Zyrtec) 10 mg PO HS Allergies 06/25/22
cholecalciferol (vitamin D3) 25 25 mcg PO DAILY Supplement 06/25/22
mcg (1,000 unit) tablet (Vitamin
D3)
coenzyme Q10 100 mg capsule 200 mg PO DAILY Supplement 06/25/22
(CoQ-10)
cyanocobalamin (vitamin B-12) 1,000 mcg PO DAILY Supplement 06/25/22
1,000 mcg tablet (Vitamin B-12)
cyclobenzaprine 10 mg tablet 10 mg PO HS Muscle spasms 06/25/22
finasteride 5 mg tablet (Proscar) 5 mg PO DAILY Urinary issue 06/25/22
levothyroxine 25 mcg tablet 25 mcg PO DAILY Thyroid 06/25/22
(Synthroid)
losartan 50 mg tablet 50 mg PO HS Blood pressure 06/25/22
metformin 1,000 mg tablet,extended 1,000 mg PO BID Diabetes 06/25/22
release 24hr (osmotic)
metoprolol succinate 25 mg 25 mg PO HS Blood pressure 06/25/22
tablet,extended release 24 hr
(Toprol XL)
omeprazole 20 mg capsule,delayed 20 mg PO DAILY Gastrointestinal 06/25/22
release issue
oxybutynin chloride 5 mg tablet 5 mg PO DAILY Urinary issue 06/25/22
oxycodone-acetaminophen 5 mg-325 1 tab PO Q8HPRN PRN severe pain 06/25/22
mg tablet (Percocet)
tamoxifen 20 mg tablet 20 mg PO DAILY 06/25/22
ascorbic acid (vitamin C) 1,000 mg 1,000 mg PO DAILY 06/09/24
tablet (Vitamin C)
escitalopram oxalate 10 mg tablet 10 mg PO DAILY 06/09/24
meclizine 12.5 mg tablet 12.5 mg PO BIDPRN PRN dizziness 06/09/24
lidocaine 4 % topical patch 1 patch topical DAILY #0 ea 06/10/24
Allergies
Allergies
Allergy/AdvReac Type Severity Reaction Status Date / Time
atorvastatin [From Lipitor] Allergy Nausea / Verified 06/09/24 19:57
Vomiting
lisinopril Allergy cough Verified 06/09/24 19:57
Vital Signs and Labs
-
Vital Signs and Labs:
Vital Signs
Temp Pulse Resp BP Pulse Ox
97.6 F 102 14 160/90 91
06/12/24 23:11 06/13/24 07:07 06/13/24 07:07 06/13/24 00:52 06/12/24 23:11
Sodium 124 mmol/L (135-145) L 06/12/24 17:38
Potassium 4.0 mmol/L (3.5-5.1) 06/12/24 17:38
BUN 16 mg/dl (9-20) 06/12/24 17:38
Glucose 162 mg/dl (70-99) H 06/12/24 17:38
Calcium 9.3 mg/dl (8.4-10.2) 06/12/24 17:38
[2024-06-13 08:00] VITALS: BP 178/96
[2024-06-13] MEDS: GLUCOPHAGE XR EXTENDED RELEASE 1000 MG PO ×2 (08:17→17:08)
[2024-06-13] MEDS: VITAMIN C 1000 MG PO (08:17)
[2024-06-13] MEDS: PROSCAR 5 MG PO (08:17)
[2024-06-13] MEDS: LEXAPRO 10 MG PO (08:17)
[2024-06-13] MEDS: FLOMAX 0.4 MG PO (08:17)
[2024-06-13] MEDS: ASPIR LOW (ENTERIC COATED) 81 MG PO (08:17)
[2024-06-13] MEDS: DITROPAN 5 MG PO (08:17)
[2024-06-13] MEDS: NOLVADEX 20 MG PO (08:17)
[2024-06-13] MEDS: VITAMIN D3 (cholecalciferol) 25 MCG PO (08:17)
[2024-06-13] MEDS: PROTONIX 40 MG PO (08:17)
[2024-06-13] MEDS: VITAMIN B-12 1000 MCG PO (08:18)
[2024-06-13] MEDS: LIDOCAINE 4% PATCH 1 PATCH TOPICAL (08:18)
[2024-06-13 08:37] LABS: Hematocrit 35.6 % (39.0-52.0); Hemoglobin 13.1 g/dL (13.0-18.0); Mean Corp Hgb Conc. 36.8 g/dL (33.0-37.0); Mean Corpuscular Hgb 31.2 pg (27.0-31.0); Mean Corpuscular Volume 84.8 fL (80.0-94.0); Mean Platelet Volume 9.7 fL (7.4-10.4); Platelet Count 164 10^3/uL (130-400); Red Cell Dist. Width 13.1 % (11.5-14.5); White Blood Cell Count 10.9 10^3/uL (4.8-10.8)
[2024-06-13 09:00] LABS: ALT (SGPT) 15 U/L (0-50); AST (SGOT) 34 U/L (17-59); Albumin 3.8 g/dl (3.5-5.0); Alkaline Phosphatase 53 U/L (38-126); Blood Urea Nitrogen 16 mg/dl (9-20); Calcium 9.5 mg/dl (8.4-10.2); Carbon Dioxide 22 mmol/L (22-30); Chloride 91 mmol/L (98-107); Estimated Creatinine Clearance 84 ml/min; Glucose 158 mg/dl (70-99); Magnesium 1.7 mg/dl (1.6-2.3); Potassium 3.8 mmol/L (3.5-5.1); Sodium 125 mmol/L (135-145); Total Bilirubin 1.4 mg/dl (0.2-1.3); eGFR > 60.00
[2024-06-13 09:57] VITALS: BP 145/103
[2024-06-13] MEDS: LR 1000 IV ×3 (11:39→23:10)
[2024-06-13 12:04] LABS: Glucose - Point of Care 147 mg/dl (70-99)
--- NOTE | 2024-06-13 12:11 | W.CON.NEPH ---
Consultation
-
Date/Time Consultation Requested: 06/13/24 1014
Date/Time Consultation Performed: 06/13/24 1230
Requesting Provider: Arnaldo Garza
Performing Provider: Merly Alvarado
Reason for Consultation: hyponatremia
Medical History
-
Chief Complaint: Fall, MERRITT
History of Present Illness:
79-year-old male with PMH of HTN on losartan, metoprolol, DM type 2 on metformin, COPD on inhalers, BPH on proscar, h/o breast cancer right mastectomy and on Tamoxifen, depression on SSRI,chr muscle spasms, GERD, HLD on Praluent injections, CAD s/p
CABG, chre vertigo on prn meclizine who reportedly had mechanical fall on admit at the grocery store and came to the ER for evaluation on 06/09. He had MERRITT and back pain since fall. He was admitted fpor observation to able to have repeat CT head f/u
prior going to SNF however now he is more confused and neurology consulted. Through his stay sodium slowly decreased from 131 to 124 yesterday and today at 125. Nephrology consulted for worsening hyponatremia. He maintained LR IVF and has no
hypotension. He is confused and unable to provide history most of the history through chart and at bedside. he also had low grade fever last evening. notes Lexapro was started 2months ago for depression/adjustment disorder.
Past Medical History
Coronary Artery Disease
Essential Hypertension
Hyperlipidemia
Diabetes Mellitus, Type II
COPD
BPH
Sciatica
Hx Right Breast CA
Past Surgical History: Other (Right Mastectomy CABG Right Reverse Total Shoulder Replacement)
Social History
Tobacco: Former Smoker (quit )
Alcohol: None
Personal:
Living: With Family
Family History
Family History: Not Pertinent
Allergies / Home Medications
Allergy/AdvReac Type Severity Reaction Status Date / Time
atorvastatin [From Lipitor] Allergy Nausea / Verified 06/09/24 19:57
Vomiting
lisinopril Allergy cough Verified 06/09/24 19:57
�Medication �Instructions �Recorded �Confirmed �Type
albuterol sulfate 90 mcg/actuation 2 puff inhalation Q6H PRN 06/25/22 06/09/24 History
aerosol inhaler shortness of breath
alfuzosin 10 mg tablet,extended 10 mg PO DAILY Urinary issue 06/25/22 06/09/24 History
release 24 hr
alirocumab 75 mg/mL subcutaneous 75 mg SC Q14D High cholesterol 06/25/22 06/09/24 History
pen injector (Praluent Pen)
aspirin 81 mg tablet,delayed 81 mg PO DAILY Blood clot 06/25/22 06/09/24 History
release prevention/tx
budesonide-formoterol HFA 80 2 puff inhalation R BID 06/25/22 06/09/24 History
mcg-4.5 mcg/actuation aerosol Lung/breathing issues
inhaler (Symbicort)
cetirizine 10 mg tablet (Zyrtec) 10 mg PO HS Allergies 06/25/22 06/09/24 History
cholecalciferol (vitamin D3) 25 25 mcg PO DAILY Supplement 06/25/22 06/09/24 History
mcg (1,000 unit) tablet (Vitamin
D3)
coenzyme Q10 100 mg capsule 200 mg PO DAILY Supplement 06/25/22 06/09/24 History
(CoQ-10)
cyanocobalamin (vitamin B-12) 1,000 mcg PO DAILY Supplement 06/25/22 06/09/24 History
1,000 mcg tablet (Vitamin B-12)
cyclobenzaprine 10 mg tablet 10 mg PO HS Muscle spasms 06/25/22 06/09/24 History
finasteride 5 mg tablet (Proscar) 5 mg PO DAILY Urinary issue 06/25/22 06/09/24 History
levothyroxine 25 mcg tablet 25 mcg PO DAILY Thyroid 06/25/22 06/09/24 History
(Synthroid)
losartan 50 mg tablet 50 mg PO HS Blood pressure 06/25/22 06/09/24 History
metformin 1,000 mg tablet,extended 1,000 mg PO BID Diabetes 06/25/22 06/09/24 History
release 24hr (osmotic)
metoprolol succinate 25 mg 25 mg PO HS Blood pressure 06/25/22 06/09/24 History
tablet,extended release 24 hr
(Toprol XL)
omeprazole 20 mg capsule,delayed 20 mg PO DAILY Gastrointestinal 06/25/22 06/09/24 History
release issue
oxybutynin chloride 5 mg tablet 5 mg PO DAILY Urinary issue 06/25/22 06/09/24 History
oxycodone-acetaminophen 5 mg-325 1 tab PO Q8HPRN PRN severe pain 06/25/22 06/09/24 History
mg tablet (Percocet)
tamoxifen 20 mg tablet 20 mg PO DAILY 06/25/22 06/09/24 History
ascorbic acid (vitamin C) 1,000 mg 1,000 mg PO DAILY 06/09/24 06/09/24 History
tablet (Vitamin C)
escitalopram oxalate 10 mg tablet 10 mg PO DAILY 06/09/24 06/09/24 History
meclizine 12.5 mg tablet 12.5 mg PO BIDPRN PRN dizziness 06/09/24 06/09/24 History
lidocaine 4 % topical patch 1 patch topical DAILY #0 ea 06/10/24 Rx
Review of Systems
-
unable to obtain due to AMS
Physical Exam
Vital Signs
Vital Signs
Temp Pulse Resp BP Pulse Ox
97.9 F 108 18 145/103 94
06/13/24 08:00 06/13/24 09:57 06/13/24 08:00 06/13/24 09:57 06/13/24 08:00
Lab Results
WBC 10.9 10^3/uL (4.8-10.8) H 06/13/24 08:09
RBC 4.20 10^6/uL (4.70-6.10) L 06/13/24 08:09
Hgb 13.1 g/dL (13.0-18.0) 06/13/24 08:09
Hct 35.6 % (39.0-52.0) L 06/13/24 08:09
Plt Count 164 10^3/uL (130-400) 06/13/24 08:09
eGFR > 60.00 06/13/24 08:09
Albumin 3.8 g/dl (3.5-5.0) 06/13/24 08:09
Abnormal Lab Results
06/12/24 06/12/24 06/12/24
12:03 17:35 17:38
WBC
RBC
Hct
MCH
Sodium 124 L
Chloride 91 L
Glucose 162 H
Total Bilirubin
Total Protein
Urine Ketones 3+ A
Urine Sodium 108 H
POC Glucose 157 H
06/13/24 06/13/24 06/13/24
00:33 05:46 08:09
WBC 10.9 H
RBC 4.20 L
Hct 35.6 L
MCH 31.2 H
Sodium 125 L
Chloride 91 L
Glucose 158 H
Total Bilirubin 1.4 H
Total Protein 6.0 L
Urine Ketones
Urine Sodium
POC Glucose 152 H 148 H
06/13/24
11:59
WBC
RBC
Hct
MCH
Sodium
Chloride
Glucose
Total Bilirubin
Total Protein
Urine Ketones
Urine Sodium
POC Glucose 147 H
CXR 06/12:
IMPRESSION:
Low lung volumes. No active pulmonary process.
CT head:
IMPRESSION:
No evidence of acute intracranial abnormality.
MRI:
IMPRESSION:
No acute intracranial abnormality. Motion limited exam.
Physical Exam
arousable, jerky leg movements
General: No Distress
HEENT: PERRL, Anicteric and Conjunctivae Clear
Respiratory: Clear, Normal Excursion and Nonlabored Respirations
Cardiac: S1/S2 and Regular Rate/Rhythm
Breast: Deferred by me
Abdomen: Soft, Nontender and Nondistended
Musculoskeletal: No Cyanosis and No Edema
Skin: No Rash
Neuro: Other (difficult to assess with AMS)
Psych: Other (difficult to asess with AMS)
Data Reviewed
-
Radiology: Report Reviewed by me and Discussed with Family
Labs: Labs Reviewed by me and Discussed with Family
Assessment/Plan
-
IMP:
Worsening hyponatremia
Acute metabolic encephalopathy
Mechanical fall with Ambulatory dysfunction/right sided pain
Chronic vertigo
Febrile Episode
BPH
HTN
HLd
CAD/CABG
DM2
GERD
Hypothyroidism/Hx right lower lobe thyroid nodule 3 cm
Chronic muscle spasms
Hx breast cancer with right mastectomy
Depression
COPD�no acute exacerbation
Seasonal allergies
PLan:
A/w M fall, now AMS with worsening hyponatremia , neuro follows
suspect high ADH state with underlying COPD, SSRI use and ?pain
check U osmo, U na was high
TSH normal and no hypotension
cont FR 40 ounces/day, if U osmo is high likely samsca
wean off IVF po intake is adequate
since he recently started on Lexapro would like to stop it
d/w family at bedside in detail
[2024-06-13 13:35] LABS: Folate 13.7 ng/ml (2.76-20); Vitamin B12 260 pg/ml (239-931)
--- NOTE | 2024-06-13 14:27 | W.PN.HOSP.TC ---
Today's Communication/Plan
-
EEG, possible Spinal Tap - f/u neuro recs
Stop lexapro
renal consulted
Urine Na/Osm
IVF
Monitor BMP
Monitor for fever
Assessment / Plan
Assessment / Plan
Physical Exam
General: Comfortable and Conversant; No Pain, Fever or Chills
HEENT: NormoCephalic, Anicteric, Moist mucous membranes, Atraumatic, PERRLA, [place] Conjunctivae, No Ptosis and Neck Nontender
Respiratory: Clear; No Wheezes, Rales or Rhonchi
Cardiac: S1/S2 and Regular Rhythm; No Murmur, Rub, Gallop or Peripheral Edema
Breast: Deferred by me
GI: Soft, Non Tender, Non Distended, Normal Bowel Sounds and No Hepatosplenomegaly
Rectal: Deferred by Provider
Genito-urinary: Deferred by me
Musculoskeletal: No Clubbing, No Cyanosis and No Edema
Skin: Warm, Dry and Other (Abrasion left elbow); No Rash
Neuro: AO x 3, No Motor Deficits, Nonfocal/grossly intact, Cranial Nerves Intact and No Sensory Deficits; No Slurred Speech, Facial Droop, Tremors or Sedated
Psych: Calm
#Acute metabolic encephalopathy
� Unclear source
� Possible etiologies include hyponatremia although doubt as severity of hyponatremia is minimal; CVA v possible CSF infectious source
� UA negative
- neurology consult�May benefit from spinal tap due to initial febrile episode upon admission
� MRI negative for acute stroke
� EEG
�Stop cetirizine, cyclobenzaprine, Lexapro
� Haldol IV as needed
#Mechanical fall with Ambulatory dysfunction/right sided pain
� May be related to above, acute metabolic encephalopathy
-CT head, neck x-rays lumbar thoracic and ribs all negative for acute pathology
-Tylenol as needed pain
-PT/OT/case management for SNF placement
#Chronic vertigo
-Continue meclizine as needed
-Patient has been working with home PT
#Febrile Episode
-F/u SARS-CoV-2 negative; of note recent febrile episode is rectal 1.8 and therefore ulikely true fever
-f/u blood cultures
-may be related to recent fall v viral, hemodynamically stable
-Can f/u with fever curve, wbc and hold on abx; defervesed on its own
-see plan above for acute metabolic encephalopathy
#Hyponatremia
-urine na/osm
-renal consulted
-stop lexapro
#BPH
-Continue oxybutynin 5 mg daily, pro scar 5 mg daily, alfuzosin 10 mg daily
#HTN
-Continue Toprol XL 25 mg at bedtime, losartan 50 mg at bedtime with hold parameters
#HLd
-Patient on Praluent pen 75 Mg q. 14 days
#CAD/CABG
Continue aspirin 81 mg daily, Praluent pen
#DM2
-Accu-Cheks with SSI, check HgbA1c
-Continue metformin 1000 mg twice daily
#GERD
-Continue omeprazole 20 mg daily
#Hypothyroidism/Hx right lower lobe thyroid nodule 3 cm
-Continue Synthroid 25 mcg p.o. daily
#Chronic muscle spasms
-stop Flexeril 10 mg at bedtime due to change in mental status
#Hx breast cancer with right mastectomy
-Continue tamoxifen 20 mg daily
#Depression
-Continue Lexapro 10 mg daily
#COPD�no acute exacerbation
-Continue Symbicort
#Seasonal allergies
-stop Zyrtec 10 mg at bedtime due to changes in mental status
DVT prophylaxis
HSQ
Total time spent on today's encounter was 51 minutes which included time spent in counseling the patient/family regarding diagnosis and treatment plan as listed above, goals of care, and symptom management. Case was discussed with nursing staff,
specialists, and care coordinators/case management. All labs and imaging personally reviewed by me. Remainder the time spent in detailed review of previous records, lab data, imaging, and other medical provider documentation.
Anticipated Discharge: > 48 hours
Subjective/Interval History
-
Date of Service: June 13, 2024
Still remains altered, not at baseline
Objective Data
-
Labs:
Laboratory Results
06/13/24 06/13/24
08:09 15:00
WBC 10.9 H
Hgb 13.1
Hct 35.6 L
Plt Count 164
Sodium 125 L Pending
Potassium 3.8 Pending
Chloride 91 L Pending
Carbon Dioxide 22 Pending
BUN 16 Pending
Creatinine 0.7 Pending
Glucose 158 H Pending
Calcium 9.5 Pending
Total Bilirubin 1.4 H
AST 34
ALT 15
Alkaline Phosphatase 53
Vital Signs:
Vital Signs
Temp Pulse Resp BP Pulse Ox
97.9 F 108 18 145/103 94
06/13/24 08:00 06/13/24 09:57 06/13/24 08:00 06/13/24 09:57 06/13/24 08:00
I&O
06/12/24 06/13/24 06/14/24
06:59 06:59 06:59
Intake Total 240 / 240 1000 / 1000
Output Total 1200 / 1200
Balance -960 / -960 1000 / 1000
Review of Systems
-
Unable to obtain full review of systems at this time due to: Acuity
History Source: Patient
All other systems: Not reviewed unless documented
Data Reviewed
-
Diagnostic Radiology: Image personally visualized and interpreted and Report Reviewed by me
Labs: Labs Reviewed by me
--- NOTE | 2024-06-13 14:41 | CM ---
CM continues to follow David for discharge, however he has acute medical needs at this time, so D/C is not likely in the next few days. Support provided to David' .
CM will continue to follow with anticipated plan for discharge to SNF when medically ready.
PCP: Bong Campuzano
Pharmacy: [facility] in [place].
[2024-06-13 14:55] LABS: Osmolality Urine 583 mOsm/kg (300-900)
[2024-06-13 15:07] LABS: Urine Sodium 119 mmol/L (30-90)
[2024-06-13 16:00] VITALS: BP 143/96
--- NOTE | 2024-06-13 16:50 | EEG.RPT ---
Electroencephalogram Report
Recording
Date of EE06/13/24
Type of EEG: Routine
Length of EEG recordin minutes
Done with Video Recording: No
Patient Status: Inpatient
Recording Conditions: Awake and Drowsy
Hyperventilation Performed: No
Photic Stimulation Performed: Yes
Report
LESS THAN 1 HOUR EEG REPORT
LESS THAN 1 HOUR EEG INTERPRETATION:
Mildly abnormal EEG for age in wakefulness through sleep due to mild diffuse bihemispheric slowing
CLINICAL CORRELATION:
This study was suggestive of mild diffuse cortical dysfunction without focal abnormality. Movements weren't clearly associated with epileptiform changes. No seizures were recorded.
Clinical correlation is advised.
METHODS:
A 21 channel digitized electroencephalogram (EEG) was performed at the bedside. The 10/20 international system of electrode placement was used with ECG and lateral/vertical eye movements recorded. The [employer] system was utilized.
QUALITY OF STUDY:
Fair
ELECTROENCEPHALOGRAPHER IMPRESSION(S):
Background
Amplitude: Unremarkable
Anterior-Posterior Organization: Fair, good at times
Maximum: Theta
Asymmetry: None
Sleep
Drowsiness present
Photic Stimulation
Failed to activate the record
ECG
Normal sinus rhythm
[2024-06-13] MEDS: SAMSCA 15 MG PO (17:08)
[2024-06-13 17:14] LABS: Blood Urea Nitrogen 14 mg/dl (9-20); Calcium 9.5 mg/dl (8.4-10.2); Carbon Dioxide 23 mmol/L (22-30); Chloride 91 mmol/L (98-107); Estimated Creatinine Clearance 84 ml/min; Glucose 126 mg/dl (70-99); Potassium 4.1 mmol/L (3.5-5.1); Sodium 124 mmol/L (135-145); eGFR > 60.00
[2024-06-13 17:33] VITALS: BMI 25.7
[2024-06-13 18:01] LABS: Glucose - Point of Care 121 mg/dl (70-99)
[2024-06-13] MEDS: TYLENOL 650 MG PO (18:49)
[2024-06-13 18:50] VITALS: BP 164/104
--- NOTE | 2024-06-13 19:20 | PHA.VAN.IN ---
Assessment
- Assessment
Renal Function: Appears similar to baseline
Concomitant Antimicrobials: ZOSYN
- Previous Dosing Experience
Previous Regimen: NONE
AUC Dosing Plan
- Dosing Variables
Dosing Weight (kg): 76.7
Dosing CrCl (ml/min): 84
Vd coefficient (L/kg): 0.7
- Empiric Dosing
Initial / Loading Dose: 2GM
Maintenance Regimen: 1GM IV Q12H
Estimated AUC (mcg*h/mL): 521
Estimated Peak (mcg*h/mL): 31.6
Estimated Trough (mcg/ml): 14
Estimated Half Life (H): 9.3
Pharmacokinetics Vancomycin I
- -
Patient Age: 79
Patient Sex: Male
Vancomycin Day #: 1
Indication: Other (KAM)
Requesting Provider: CRISTINA
Height / Weight:
Height 5 ft 8 in
Actual Weight 76.685 kg
- Vital Signs / Lab Results
Temp Pulse Resp BP Pulse Ox
101.1 F H 119 18 164/104 93
06/13/24 18:50 06/13/24 18:50 06/13/24 18:50 06/13/24 18:50 06/13/24 18:50
Lab Results - Hematology
06/11/24 06/12/24 06/13/24
08:14 06:41 08:09
WBC 10.5 11.4 H 10.9 H
Lab Results - Chemistry
06/11/24 06/12/24 06/12/24
08:14 06:41 17:38
BUN 16 18 16
Creatinine 0.9 0.8 0.8
Estimated Creat Clear 65 74 74
Albumin 3.9 3.9
06/13/24 06/13/24
08:09 16:39
BUN 16 14
Creatinine 0.7 0.7
Estimated Creat Clear 84 84
Albumin 3.8
Lab Results - Urine
06/12/24
12:03
Urine Nitrite (Reflex) Negative
Leukocyte Esterase Rfl Negative
Microbiology Results
06/10/24 19:24 Blood Culture - Preliminary
Blood/Venous No Growth in 48 hours- Final report to follow
[2024-06-13] MEDS: VANCOCIN 540 MG IV (20:03)
[2024-06-13 21:24] VITALS: BP 165/87
[2024-06-13] MEDS: TOPROL XL 25 MG PO (22:17)
[2024-06-13] MEDS: COZAAR 50 MG PO (22:17)
[2024-06-13] MEDS: ZOSYN 50 IV (22:32)
[2024-06-14] VITALS: BP 144/91
[2024-06-14 00:30] LABS: Glucose - Point of Care 133 mg/dl (70-99)
[2024-06-14] MEDS: NOVOLOG FLEXPEN-LOW RESISTANCE SC ×3 (00:35→17:52)
[2024-06-14] MEDS: ZOSYN 50 IV ×4 (05:14→21:01)
[2024-06-14 05:50] LABS: Glucose - Point of Care 151 mg/dl (70-99)
[2024-06-14] MEDS: SYNTHROID 25 MCG PO (05:55)
[2024-06-14] MEDS: NOVOLOG FLEXPEN-LOW RESISTANCE 1 UNITS SC (05:56)
[2024-06-14] MEDS: VANCOCIN 200 IV (05:56)
[2024-06-14 07:13] VITALS: BP 143/97
[2024-06-14] MEDS: SYMBICORT 80/4.5 MCG INHALER 2 PUFF INH ×2 (07:45→20:57)
[2024-06-14 08:00] LABS: Hematocrit 32.8 % (39.0-52.0); Hemoglobin 11.8 g/dL (13.0-18.0); Mean Corpuscular Hgb 31.3 pg (27.0-31.0); Mean Platelet Volume 9.4 fL (7.4-10.4); Platelet Count 152 10^3/uL (130-400); Red Blood Cell Count 3.77 10^6/uL (4.70-6.10); Red Cell Dist. Width 13.2 % (11.5-14.5)
[2024-06-14] MEDS: HEPARIN 5000 UNITS SC ×3 (08:02→23:55)
[2024-06-14] MEDS: PROTONIX 40 MG PO (08:03)
[2024-06-14] MEDS: NOLVADEX 20 MG PO (08:03)
[2024-06-14] MEDS: VITAMIN D3 (cholecalciferol) 25 MCG PO (08:03)
[2024-06-14] MEDS: FLOMAX 0.4 MG PO (08:03)
[2024-06-14] MEDS: ASPIR LOW (ENTERIC COATED) 81 MG PO (08:03)
[2024-06-14] MEDS: VITAMIN C 1000 MG PO (08:03)
[2024-06-14] MEDS: VITAMIN B-12 1000 MCG PO (08:03)
[2024-06-14] MEDS: PROSCAR 5 MG PO (08:03)
[2024-06-14] MEDS: GLUCOPHAGE XR EXTENDED RELEASE PO ×2 (08:04→16:11)
[2024-06-14] MEDS: DITROPAN 5 MG PO (08:04)
[2024-06-14] MEDS: LIDOCAINE 4% PATCH TOPICAL (08:05)
[2024-06-14 09:25] LABS: ALT (SGPT) 18 U/L (0-50); AST (SGOT) 39 U/L (17-59); Albumin 3.5 g/dl (3.5-5.0); Alkaline Phosphatase 48 U/L (38-126); Blood Urea Nitrogen 15 mg/dl (9-20); Calcium 9.6 mg/dl (8.4-10.2); Carbon Dioxide 25 mmol/L (22-30); Chloride 98 mmol/L (98-107); Estimated Creatinine Clearance 65 ml/min; Glucose 140 mg/dl (70-99); Magnesium 1.9 mg/dl (1.6-2.3); Potassium 3.6 mmol/L (3.5-5.1); Sodium 133 mmol/L (135-145); Total Bilirubin 1.3 mg/dl (0.2-1.3); Total Protein 5.5 g/dl (6.3-8.2); eGFR > 60.00
--- NOTE | 2024-06-14 09:40 | PHA.VAN.FU ---
Vancomycin Assessment / Plan
- Assessment
Renal Function: SCR Increasing
WBC's are: Trending Down
In the past 24 hrs, patient has been: Febrile (101.1)
Concomitant Antimicrobials: Piperacillin-tazobactam
- Dosing Plan
Continue: Vanc 1000mg IV Q12H
- Monitoring Plan
No level(s) ordered at this time: Order levels after 06/15 1800 dose
- Follow Up
Pharmacy will continue to follow.
Vancomycin Follow UP
- -
Patient Age: 79
Patient Sex: Male
Vancomycin Day #: 2
Indication: Other (KAM)
Requesting Provider: CRISTINA
Height / Weight:
Height 5 ft 8 in
Actual Weight 76.685 kg
- Vital Signs / Lab Results
Temp Pulse Resp BP Pulse Ox
98.6 F 104 16 143/97 94
06/14/24 07:13 06/14/24 07:47 06/14/24 07:47 06/14/24 07:13 06/14/24 07:47
Lab Results - Hematology
06/12/24 06/13/24 06/14/24
06:41 08:09 07:02
WBC 11.4 H 10.9 H 9.0
Lab Results - Chemistry
06/11/24 06/12/24 06/12/24
08:14 06:41 17:38
BUN 16 18 16
Creatinine 0.9 0.8 0.8
Estimated Creat Clear 65 74 74
Albumin 3.9 3.9
06/13/24 06/13/24 06/14/24
08:09 16:39 07:02
BUN 16 14 15
Creatinine 0.7 0.7 0.9
Estimated Creat Clear 84 84 65
Albumin 3.8 3.5
Microbiology Results
06/10/24 19:24 Blood Culture - Preliminary
Blood/Venous No Growth in 72 hours- Final report to follow
[2024-06-14 12:15] LABS: Glucose - Point of Care 112 mg/dl (70-99)
--- NOTE | 2024-06-14 12:42 | W.PN.HOSP.TC ---
Today's Communication/Plan
-
monitor Na levels, FWR
ID consulted
Cont empiric abx
f/u cultures
may benefit from LP
monitor mental status
pt/ot
Assessment / Plan
Assessment / Plan
Physical Exam
General: Comfortable and Conversant; No Pain, Fever or Chills
HEENT: NormoCephalic, Anicteric, Moist mucous membranes, Atraumatic, PERRLA, [place] Conjunctivae, No Ptosis and Neck Nontender
Respiratory: Clear; No Wheezes, Rales or Rhonchi
Cardiac: S1/S2 and Regular Rhythm; No Murmur, Rub, Gallop or Peripheral Edema
Breast: Deferred by me
GI: Soft, Non Tender, Non Distended, Normal Bowel Sounds and No Hepatosplenomegaly
Rectal: Deferred by Provider
Genito-urinary: Deferred by me
Musculoskeletal: No Clubbing, No Cyanosis and No Edema
Skin: Warm, Dry and Other (Abrasion left elbow); No Rash
Neuro: AO x 3, No Motor Deficits, Nonfocal/grossly intact, Cranial Nerves Intact and No Sensory Deficits; No Slurred Speech, Facial Droop, Tremors or Sedated
Psych: Calm
#Febrile Episodes
#Sepsis with organ dysfunction (acute metabolic encephalopathy)
-F/u SARS-CoV-2 negative;
-f/u blood cultures no growth to date
� ID consulted
� Initiated on empiric antibiotics
-may be related to recent fall v viral, hemodynamically stable
-Can f/u with fever curve
�May need lumbar puncture
#Acute metabolic encephalopathy
� Unclear source
� Possible etiologies include hyponatremia although doubt as severity of hyponatremia is minimal; possible CSF infectious source
� ID consulted
� UA, MRI, EEG negative
- neurology consult�May benefit from spinal tap due to initial febrile episode upon admission
�Stop cetirizine, cyclobenzaprine, Lexapro
� Haldol IV as needed
#Mechanical fall with Ambulatory dysfunction/right sided pain
� May be related to above, acute metabolic encephalopathy
-CT head, neck x-rays lumbar thoracic and ribs all negative for acute pathology
-Tylenol as needed pain
-PT/OT/case management for SNF placement
#Chronic vertigo
-Continue meclizine as needed
-Patient has been working with home PT
#Hyponatremia
-urine na/osm
-renal consulted
-stop lexapro
�Free water restriction, 40 ounces/day
#BPH
-Continue oxybutynin 5 mg daily, pro scar 5 mg daily, alfuzosin 10 mg daily
#HTN
-Continue Toprol XL 25 mg at bedtime, losartan 50 mg at bedtime with hold parameters
#HLd
-Patient on Praluent pen 75 Mg q. 14 days
#CAD/CABG
Continue aspirin 81 mg daily, Praluent pen
#DM2
-Accu-Cheks with SSI, check HgbA1c
-Continue metformin 1000 mg twice daily
#GERD
-Continue omeprazole 20 mg daily
#Hypothyroidism/Hx right lower lobe thyroid nodule 3 cm
-Continue Synthroid 25 mcg p.o. daily
#Chronic muscle spasms
-stop Flexeril 10 mg at bedtime due to change in mental status
#Hx breast cancer with right mastectomy
-Continue tamoxifen 20 mg daily
#Depression
-Discontinue Lexapro 10 mg daily due to hyponatremia
#COPD�no acute exacerbation
-Continue Symbicort
#Seasonal allergies
-stop Zyrtec 10 mg at bedtime due to changes in mental status
DVT prophylaxis
HSQ
Total time spent on today's encounter was 53 minutes which included time spent in counseling the patient/family regarding diagnosis and treatment plan as listed above, goals of care, and symptom management. Case was discussed with nursing staff,
specialists, and care coordinators/case management. All labs and imaging personally reviewed by me. Remainder the time spent in detailed review of previous records, lab data, imaging, and other medical provider documentation.
Anticipated Discharge: > 48 hours
Subjective/Interval History
-
Date of Service: June 14, 2024
Still altered although appears to have less jerking movements. Spiked temperature again at one 1.1 yesterday evening
Objective Data
-
Labs:
Laboratory Results
06/14/24
07:02
WBC 9.0
Hgb 11.8 L
Hct 32.8 L
Plt Count 152
Sodium 133 L D
Potassium 3.6
Chloride 98
Carbon Dioxide 25
BUN 15
Creatinine 0.9
Glucose 140 H
Calcium 9.6
Total Bilirubin 1.3
AST 39
ALT 18
Alkaline Phosphatase 48
Vital Signs:
Vital Signs
Temp Pulse Resp BP Pulse Ox
98.6 F 104 16 143/97 94
06/14/24 07:13 06/14/24 07:47 06/14/24 07:47 06/14/24 07:13 06/14/24 07:47
I&O
06/13/24 06/14/24 06/15/24
06:59 06:59 06:59
Intake Total 240 / 240 1400 / 1400
Output Total 1200 / 1200
Balance -960 / -960 1400 / 1400
Review of Systems
-
History Source: Patient
All other systems: Not reviewed unless documented
Data Reviewed
-
Diagnostic Radiology: Image personally visualized and interpreted and Report Reviewed by me
CT Scan: Image personally visualized and interpreted and Report Reviewed by me
MRI: Image personally visualized and interpreted and Report Reviewed by me
Labs: Labs Reviewed by me
[2024-06-14] MEDS: LR 1000 IV ×2 (13:01→21:00)
--- NOTE | 2024-06-14 13:30 | W.PN.NEPH.PH ---
Today's Communication / Plan
-
observe with IVF, decrease rate
Assessment/Plan
-
IMP:
Worsening hyponatremia
Acute metabolic encephalopathy
Mechanical fall with Ambulatory dysfunction/right sided pain
Chronic vertigo
Febrile Episode
BPH
HTN
HLd
CAD/CABG
DM2
GERD
Hypothyroidism/Hx right lower lobe thyroid nodule 3 cm
Chronic muscle spasms
Hx breast cancer with right mastectomy
Depression
COPD�no acute exacerbation
Seasonal allergies
PLan:
A/w M fall, but with AMS later and hyponatremia , neuro follows
U osmo 583, high ADH state with underlying COPD, SSRI use and ?pain
U na was high while on IVF
TSH normal and no hypotension
cont FR 40 ounces/day,
sodium better post low dose sasmca
off SSRI
wean off IVF po intake is adequate
d/w family at bedside in detail
-
-
Date of Service: June 14, 2024
CC / HPI / ROS
-
Chief Complaint:
hyponatremia
History of Present Illness:
sodium better at 133, BP stable
fever last night, abx added
Review of Systems:
more awake, able to answer few questions, known he is hospital
mild hand jerking -better today
no pain
Labs
-
Labs:
WBC 9.0 10^3/uL (4.8-10.8) 06/14/24 07:02
RBC 3.77 10^6/uL (4.70-6.10) L 06/14/24 07:02
Hgb 11.8 g/dL (13.0-18.0) L 06/14/24 07:02
Hct 32.8 % (39.0-52.0) L 06/14/24 07:02
Plt Count 152 10^3/uL (130-400) 06/14/24 07:02
Sodium 133 mmol/L (135-145) L D 06/14/24 07:02
Potassium 3.6 mmol/L (3.5-5.1) 06/14/24 07:02
Chloride 98 mmol/L (98-107) 06/14/24 07:02
Carbon Dioxide 25 mmol/L (22-30) 06/14/24 07:02
BUN 15 mg/dl (9-20) 06/14/24 07:02
Creatinine 0.9 mg/dL (0.7-1.3) 06/14/24 07:02
eGFR > 60.00 06/14/24 07:02
Glucose 140 mg/dl (70-99) H 06/14/24 07:02
Calcium 9.6 mg/dl (8.4-10.2) 06/14/24 07:02
Albumin 3.5 g/dl (3.5-5.0) 06/14/24 07:02
Physical Exam
-
Vital Signs:
Vital Signs
Temp Pulse Resp BP Pulse Ox
98.6 F 104 16 143/97 94
06/14/24 07:13 06/14/24 07:47 06/14/24 07:47 06/14/24 07:13 06/14/24 07:47
Cardiovascular:: Regular rate and rhythm
Respiratory:: Bilateral: CTA (decreased)
Lung Excursion:: Normal
Abdomen:: Nontender and Soft
Extremity Edema:: None: Bilateral:
[place] Catheter: No
--- NOTE | 2024-06-14 13:57 | PTOTSP ---
SPEECH THERAPY SWALLOW EVALUATION:
Patient exhibits clinical signs of oropharyngeal dysphagia, likely acutely related Acute Metabolic Encephalopathy of unknown etiology; DDx including CVS, hyponatremia, CSF infectious source. Patient is at high risk for aspiration and related
complications given lethargy and confusion. Recommend temporary NPO except for necessary medications crushed in puree, and ARHP via small single sips of water via open cup following oral care, with RN Supervision. Speech therapy to follow, re-assess
in 24 hours, determine readiness for p.o. trials and/or diet readiness, provide continued education regarding aspiration risks/precautions, and provide continued diagnostic swallow therapy as appropriate. Discussed recommendations with RN including
recommendation for setting up suctioning to assist with oral care.
RECOMMEND:
1) temporary NPO
2) necessary medications crushed in puree
3) ARHP: small single sips of water via open cup following oral care, with supervision
4) Oral care 3x/day
5) ST to follow, re-assess in 24 hours
--- NOTE | 2024-06-14 15:44 | CON.ID ---
Consultation
-
Date/Time Consultation Requested: 06/14/24 8:53
Date/Time Consultation Performed: 06/14/24 15:44
Requesting Provider: Dr Garcia
Performing Provider: Dr Boone
Reason for Consultation: mental status changes
Chief Complaint / Past History
Chief Complaint
s/p fall
History of Present Illness
Mr Pineda is a 79 year old male with history of DM2, right breast cancer remote who presented here 06/09 after he lost his balance on a ramp, tried to grab a pole and missed falling backward onto his head and back. He was brought to the ER for
evaluation. + headache, no lightheadedness or dizziness. Also reported some rib pain pleuritic. On ASA 81 mg outpatient.
Since arrival here he has been spiking fevers - increasing to 101.1 axillary last night, bp stable, wbc initially 10.8, peaked on 1=06/12 at 11.4 and now 9.0, hbg 11.8, plt 152, there was mild L shift on arrival, cr 0.9, NA initially 132 and trended
down to gerardo on 124 yesterday - today nearly normalized at 133, K 3.5, t bili 1.3, ast 39, alt 18, alk phos 48, covid ag negative 06/10 and also 06/12, 06/13 (yesterday) brain MRI without contrast: no acute abnormality, 06/12 CXR: no infiltrates, 06/11
CT head without contrast: no acute abnormality, thoracic spine xray: DISH, 06/13 blood cultures x2 in progress, mrsa screen negative, Staff have reported progressive confusion. [employer] cyclobenzaprine, lexapro and cetirizine discontinued. He was
started on zosyn and vancomycin 06/13. EEG nonrevealing, he is also on haldol 1 mg IV q 4 hrs PRN, patient now following some 1 step commands, giving appropriate answers to questions
Past History
Additional Past Medical History:
Coronary Artery Disease
Essential Hypertension
Hyperlipidemia
Diabetes Mellitus, Type II
COPD
BPH
Sciatica
Hx Right Breast CA
Additional Past Surgical History:
Right Mastectomy
CABG
Right Reverse Total Shoulder Replacement
Allergy History:
atorvastatin [From Lipitor] Allergy (Verified 06/09/24 19:57)
Nausea / Vomiting
lisinopril Allergy (Verified 06/09/24 19:57)
cough
Medications Reviewed: Yes
Social History
Tobacco: Former Smoker
Alcohol: None
Personal:
Family History
Family History: Not Pertinent
Review of Systems
Review of Systems
unable to obtain due to the condition of the patient
Vital Signs
Temp Pulse Resp BP Pulse Ox
98.6 F 104 16 143/97 94
06/14/24 07:13 06/14/24 07:47 06/14/24 07:47 06/14/24 07:13 06/14/24 07:47
Physical Exam
Physical Exam
Constitutional: No Acute Distress and Chronically Ill
Cardiovascular: Regular Rate and S1/S2; Negative Murmur or Rub
Pulmonary: Clear and Symmetric; Negative Wheezes, Rales or Rhonchi
Gastrointestinal: Soft, Non Tender, Non Distended and Normal Bowel Sounds
Skin: Warm and Dry; Negative Rash or Jaundice
Neurological: Awake, Alert, Oriented and Other (following 1 step commands, recognizes his )
Psychological: Confused
Lab / Diagnostic Study Results
06/14/24 07:02
06/14/24 07:02
Abs Immat Gran (auto) 0.1 10^3/uL (0-0.05) H 06/10/24 06:10
Absolute Neuts (auto) 8.0 10^3/uL (1.4-6.5) H 06/10/24 06:10
Absolute Lymphs (auto) 1.4 10^3/uL (1.2-3.4) 06/10/24 06:10
Absolute Monos (auto) 0.9 10^3/uL (0.1-0.6) H 06/10/24 06:10
Absolute Basos (auto) 0.0 10^3/uL (0-0.2) 06/10/24 06:10
Immature Gran % 0.9 % (0-0.5) H 06/10/24 06:10
Neutrophils % 75.8 % (42.2-75.2) H 06/10/24 06:10
Lymphocytes % 13.2 % (20.5-51.1) L 06/10/24 06:10
Monocytes % 8.5 % (1.7-9.3) 06/10/24 06:10
Eosinophils % 1.2 % (0-6) 06/10/24 06:10
Basophils % 0.4 % (0-2) 06/10/24 06:10
Microbiology Results
Micro:
06/14/24 12:55 MRSA Screen - Pending
Nose
06/13/24 20:30 Blood Culture - Pending
Blood/Venous
06/10/24 19:24 Blood Culture - Preliminary
Blood/Venous No Growth in 72 hours- Final report to follow
06/13/24 19:17 Blood Culture - Pending
Blood/Venous
Assessment / Plan
Encephlopathy
Resolving acute hyponatremia
Fevers
Polypharmacy
- blood culture x2 in progress no growth to date
- 3rd and final covid swab, its 48 hours since the last swab
- UA no pyuria
- babesia smear, low clinical suspicion with normal plt and lfts
- note cessation of [employer] cyclobenzaprine, lexapro and cetirizine; note that meclizine could also contribute but limited alternatives
- stopped vancomycin
- can continue zosyn for now
- add doxycycline
- clinically improving, agree with holding off of LP at this moment
- MRI without contrast yesterday nonrevealing
- follow clinically
Care Review
Plan reviewed with: Physician (Dr España - )
[2024-06-14 15:46] VITALS: BP 152/76
[2024-06-14 15:56] VITALS: BP 118/80; BP 139/70; BP 143/80; PULSE 101; PULSE 96
[2024-06-14 15:58] VITALS: BP 118/80; BP 139/79; BP 143/80; PULSE 101; PULSE 96; O2SAT 96
[2024-06-14 16:50] LABS: COVID-19 Antigen Negative (Negative)
[2024-06-14 17:48] LABS: Glucose - Point of Care 111 mg/dl (70-99)
--- NOTE | 2024-06-14 19:27 | W.PN.NEURO.1 ---
Today's Communication / Plan
-
will hold off on LP for now given improvement
Neuro Assessment/Plan
Assessment
NARCISO MAURICIO is a 79 year old M who has presented to the hospital s/p fall, thought to be mechanical, now with increased confusion.
Differentials for the patient's presentation include:
Encephalopathy due to hyponatremia and B12 deficiency; mental status has improved with sodium going from 124 to 133; B12 in 200s; started supplementation. Stopping cyclobenzaprine, lexapro and cetirizine prior to his arrival here could also be
contributing.
Hospital delirium/exacerbation of underlying dementia
MRI brain:
No acute intracranial abnormality. Motion limited exam.
EEG: mild diffuse slowing
Plan
Recommendations:
-will hold off on LP given significant improvement in mental status today; reviewed with ID, in agreement
-continue B12 supplementation
-can continue Haldol for agitation
-avoid narcotics and sedation if possible
-continue PT/OT/speech evaluations
-continue fall precautions
-DVT prophylaxis
Subjective/Objective
Subjective Data
Date of Service: June 14, 2024
confusion, dysarthria significantly improved today
Objective Data
Vital Signs
Temp Pulse Resp BP Pulse Ox
99.3 F 93 16 152/76 93
06/14/24 15:46 06/14/24 15:46 06/14/24 15:46 06/14/24 15:46 06/14/24 15:46
Lab Results
06/14/24 07:02
06/14/24 07:02
Sodium 133 mmol/L (135-145) L D 06/14/24 07:02
Potassium 3.6 mmol/L (3.5-5.1) 06/14/24 07:02
BUN 15 mg/dl (9-20) 06/14/24 07:02
Glucose 140 mg/dl (70-99) H 06/14/24 07:02
Calcium 9.6 mg/dl (8.4-10.2) 06/14/24 07:02
Vitamin B12 260 pg/ml (239-931) 06/13/24 08:09
Patient Allergies
atorvastatin [From Lipitor] Allergy (Verified 06/09/24 19:57)
Nausea / Vomiting
lisinopril Allergy (Verified 06/09/24 19:57)
cough
Physical Exam
-
General: No Apparent Distress
Extended Neurological Exam
Attention Span & Concentration: Lethargic and Other (does follow all commands today, recognizes and able to speak intelligibly--a major improvement from yesterday)
Tremor: Other (jerking movements present yesterday have resolved)
Speech: Other (still somewhat dysarthric but significantly improved from yesterday)
Cranial Nerves III, IV, : Extraocular Movement: Extraocular Movement Full in all Directions
Cranial Nerve VII: Facial Symmetry: Normal Facial Symmetry
Muscle Strength, Overall: Full Throughout
Deep Tendon Reflexes: Unremarkable Throughout
Babinski Sign: Absent Bilaterally
[2024-06-14] MEDS: VIBRAMYCIN 100 MG PO (21:00)
[2024-06-14] MEDS: COZAAR 50 MG PO (21:00)
[2024-06-14] MEDS: TOPROL XL 25 MG PO (21:00)
[2024-06-14 23:00] VITALS: BP 141/81
[2024-06-14 23:59] LABS: Glucose - Point of Care 117 mg/dl (70-99)
[2024-06-15] MEDS: NOVOLOG FLEXPEN-LOW RESISTANCE SC ×3 (00:08→12:37)
[2024-06-15] MEDS: ZOSYN 50 IV ×4 (04:02→23:00)
[2024-06-15] MEDS: ULTRAM 25 MG PO (04:21)
[2024-06-15] MEDS: SYNTHROID PO (06:21)
[2024-06-15 06:26] LABS: Glucose - Point of Care 102 mg/dl (70-99)
[2024-06-15 07:00] VITALS: BP 154/94
[2024-06-15 07:00] LABS: Hematocrit 32.3 % (39.0-52.0); Hemoglobin 11.9 g/dL (13.0-18.0); Mean Corp Hgb Conc. 36.8 g/dL (33.0-37.0); Mean Corpuscular Hgb 32.3 pg (27.0-31.0); Mean Corpuscular Volume 87.8 fL (80.0-94.0); Mean Platelet Volume 9.3 fL (7.4-10.4); Platelet Count 138 10^3/uL (130-400); Red Blood Cell Count 3.68 10^6/uL (4.70-6.10); Red Cell Dist. Width 13.2 % (11.5-14.5)
[2024-06-15 07:20] LABS: ALT (SGPT) 35 U/L (0-50); AST (SGOT) 50 U/L (17-59); Albumin 3.3 g/dl (3.5-5.0); Alkaline Phosphatase 44 U/L (38-126); Blood Urea Nitrogen 16 mg/dl (9-20); Calcium 9.2 mg/dl (8.4-10.2); Carbon Dioxide 25 mmol/L (22-30); Chloride 99 mmol/L (98-107); Estimated Creatinine Clearance 65 ml/min; Glucose 111 mg/dl (70-99); Magnesium 1.8 mg/dl (1.6-2.3); Potassium 3.4 mmol/L (3.5-5.1); Sodium 131 mmol/L (135-145); Total Bilirubin 1.1 mg/dl (0.2-1.3); Total Protein 5.3 g/dl (6.3-8.2); eGFR > 60.00
[2024-06-15] MEDS: SYMBICORT 80/4.5 MCG INHALER 2 PUFF INH ×2 (07:23→19:47)
[2024-06-15] MEDS: VITAMIN B-12 1000 MCG PO (07:42)
[2024-06-15] MEDS: VIBRAMYCIN 100 MG PO ×2 (07:42→20:22)
[2024-06-15] MEDS: PROTONIX 40 MG PO (07:42)
[2024-06-15] MEDS: ASPIR LOW (ENTERIC COATED) 81 MG PO (07:42)
[2024-06-15] MEDS: PROSCAR 5 MG PO (07:42)
[2024-06-15] MEDS: VITAMIN C 1000 MG PO (07:43)
[2024-06-15] MEDS: VITAMIN D3 (cholecalciferol) 25 MCG PO (07:43)
[2024-06-15] MEDS: FLOMAX 0.4 MG PO (07:43)
[2024-06-15] MEDS: HEPARIN 5000 UNITS SC ×3 (07:43→23:12)
[2024-06-15] MEDS: DITROPAN 5 MG PO (07:43)
[2024-06-15] MEDS: NOLVADEX 20 MG PO (07:43)
[2024-06-15] MEDS: LIDOCAINE 4% PATCH 1 PATCH TOPICAL (07:43)
[2024-06-15] MEDS: GLUCOPHAGE XR EXTENDED RELEASE PO (07:58)
[2024-06-15] MEDS: KCL 270 MEQ IV (10:04)
--- NOTE | 2024-06-15 10:34 | W.PN.ID1 ---
Date of Service
Date of Service: June 15, 2024
Today's Communication
- continue zosyn for now day 3
- c/w doxycycline day 2
- further clinically improving, agree with holding off of LP at this moment
Assessment / Plan
Encephalopathy
Resolving acute hyponatremia
Fevers
Polypharmacy
- alert, responding appropriately to questions today, mild headache, no photophobia
- blood culture x2 in progress no growth to date
- UA no pyuria
- babesia smear, low clinical suspicion with normal plt and lfts
- note cessation of [employer] cyclobenzaprine, lexapro and cetirizine; note that meclizine could also contribute but limited alternatives
- continue zosyn for now day 3
- c/w doxycycline day 2
- clinically improving, agree with holding off of LP at this moment
- follow clinically
Chief Complaint
-: Other (encephalopathy)
Subjective / Review of Systems
afebrile over 24 hours
no overnight events recorded
alert, responding appropriately to questions today
Vital Signs / Physical Exam
Vital Signs
Vital Signs
Temp Pulse Resp BP Pulse Ox
97.7 F 85 16 154/94 95
06/15/24 07:00 06/15/24 07:25 06/15/24 07:25 06/15/24 07:00 06/15/24 07:25
Physical Exam
Constitutional: No Acute Distress and Non-toxic
Cardiovascular: Regular Rate and S1/S2; Negative Murmur or Rub
Pulmonary: Clear and Symmetric; Negative Wheezes or Rales
Gastrointestinal: Soft, Non Tender, Non Distended and Normal Bowel Sounds
Skin: Warm and Dry; Negative Rash or Jaundice
Neurological: Awake
Objective Data
Lab Data
Lab Results
06/15/24 06:50
06/15/24 06:50
Estimated Creat Clear 65 ml/min 06/15/24 06:50
Total Bilirubin 1.1 mg/dl (0.2-1.3) 06/15/24 06:50
AST 50 U/L (17-59) 06/15/24 06:50
ALT 35 U/L (0-50) 06/15/24 06:50
Alkaline Phosphatase 44 U/L (38-126) 06/15/24 06:50
Most recent labs reviewed.
babesia smear pending
mrsa screen pending
covid ag remains neg
Micro Results:
06/15/24 06:50 Blood Parasites Smear - Pending
Blood/Venous
06/13/24 20:30 Blood Culture - Preliminary
Blood/Venous No Growth in 24 hours- Final report to follow
06/10/24 19:24 Blood Culture - Preliminary
Blood/Venous No Growth in 4 days- Final report to follow
06/13/24 19:17 Blood Culture - Preliminary
Blood/Venous No Growth in 24 hours- Final report to follow
06/14/24 12:55 MRSA Screen - Pending
Nose
--- NOTE | 2024-06-15 11:30 | W.PN.NEURO.1 ---
Today's Communication / Plan
-
no LP
s/o
Neuro Assessment/Plan
Assessment
NARCISO MAURICIO is a 79 year old M who has presented to the hospital s/p fall, thought to be mechanical, who then developed increased confusion.
Differentials for the patient's presentation include:
Encephalopathy due to hyponatremia and B12 deficiency; mental status has improved with sodium improvement; B12 in 200s; started supplementation. Stopping cyclobenzaprine, lexapro and cetirizine prior to his arrival here could also be contributing.
Hospital delirium/exacerbation of underlying dementia
MRI brain:
No acute intracranial abnormality. Motion limited exam.
EEG: mild diffuse slowing
Plan
Recommendations:
-will hold off on LP given significant improvement in mental status today; reviewed with ID, in agreement
-continue B12 supplementation
-can continue Haldol for agitation
-avoid narcotics and sedation if possible
-continue PT/OT/speech evaluations
-continue fall precautions
-DVT prophylaxis
Neurology is signing off. Please call if any changes/further questions.
Subjective/Objective
Subjective Data
Date of Service: June 15, 2024
mental status and dysarthria continue to improve
Objective Data
Vital Signs
Temp Pulse Resp BP Pulse Ox
97.7 F 85 16 154/94 95
06/15/24 07:00 06/15/24 07:25 06/15/24 07:25 06/15/24 07:00 06/15/24 07:25
Lab Results
06/15/24 06:50
06/15/24 06:50
Sodium 131 mmol/L (135-145) L 06/15/24 06:50
Potassium 3.4 mmol/L (3.5-5.1) L 06/15/24 06:50
BUN 16 mg/dl (9-20) 06/15/24 06:50
Glucose 111 mg/dl (70-99) H 06/15/24 06:50
Calcium 9.2 mg/dl (8.4-10.2) 06/15/24 06:50
Vitamin B12 260 pg/ml (239-931) 06/13/24 08:09
Patient Allergies
atorvastatin [From Lipitor] Allergy (Verified 06/09/24 19:57)
Nausea / Vomiting
lisinopril Allergy (Verified 06/09/24 19:57)
cough
Physical Exam
-
Attention Span & Concentration: Lethargic and Other (does follow all commands today, oriented to month, self, location; able to state 's name)
Tremor: Other (jerking movements remain resolved)
Speech: Other (very mild dysarthria but significantly improved)
Cranial Nerves III, IV, : Extraocular Movement: Extraocular Movement Full in all Directions
Cranial Nerve VII: Facial Symmetry: Normal Facial Symmetry
Muscle Strength, Overall: Full Throughout
Deep Tendon Reflexes: Unremarkable Throughout
Babinski Sign: Absent Bilaterally
[2024-06-15 12:01] LABS: Glucose - Point of Care 102 mg/dl (70-99)
--- NOTE | 2024-06-15 12:51 | PTOTSP ---
SPEECH THERAPY SWALLOW THERAPY FOLLOW UP:
Patient exhibits clinical signs of oropharyngeal dysphagia, likely related to Acute metabolic encephalopathy. Dysphagia symptoms, mentation, and level of alertness appear improved compared to evaluation yesterday. Recommend IDDSI Level 6 Soft and
Bite Size diet, thin liquids. Medications whole in puree. Aspiration precautions: 1:1 assist with meals; 100% supervision; Small sips/bites; Slow rate of intake; Only feed when awake/alert; Remain upright 30 minutes after eating/drinking; Monitor
for signs of aspiration; D/c oral diet if any decline in mental or respiratory status. Speech therapy to follow, assess diet tolerance and modify as appropriate, determine readiness for diet upgrade pending mentation, provide continued education
regarding aspiration risks/precautions.
RECOMMEND:
1) IDDSI Level 6 Soft and Bite Size diet, thin liquids
2) Medications whole in puree
3) Aspiration precautions: 1:1 assist with meals; 100% supervision; Small sips/bites; Slow rate of intake; Only feed when awake/alert; Remain upright 30 minutes after eating/drinking; Monitor for signs of aspiration; D/c oral diet if any decline in
mental or respiratory status
4) ST to follow
--- NOTE | 2024-06-15 13:57 | W.PN.HOSP.TC ---
Today's Communication/Plan
-
cont iv abx
monitor Na
advance diet
monitor mental status
Assessment / Plan
Assessment / Plan
Physical Exam
General: Comfortable and Conversant; No Pain, Fever or Chills
HEENT: NormoCephalic, Anicteric, Moist mucous membranes, Atraumatic, PERRLA, [place] Conjunctivae, No Ptosis and Neck Nontender
Respiratory: Clear; No Wheezes, Rales or Rhonchi
Cardiac: S1/S2 and Regular Rhythm; No Murmur, Rub, Gallop or Peripheral Edema
Breast: Deferred by me
GI: Soft, Non Tender, Non Distended, Normal Bowel Sounds and No Hepatosplenomegaly
Rectal: Deferred by Provider
Genito-urinary: Deferred by me
Musculoskeletal: No Clubbing, No Cyanosis and No Edema
Skin: Warm, Dry and Other (Abrasion left elbow); No Rash
Neuro: AO x 3, No Motor Deficits, Nonfocal/grossly intact, Cranial Nerves Intact and No Sensory Deficits; No Slurred Speech, Facial Droop, Tremors or Sedated
Psych: Calm
#Febrile Episodes
#Sepsis with organ dysfunction (acute metabolic encephalopathy)
-F/u SARS-CoV-2 negative;
-f/u blood cultures no growth to date
� ID consulted
� Initiated on empiric antibiotics
-babesia smear, low clinical suspicion with normal plt and lfts
-Can f/u with fever curve
�can hold on lp at this time as improving
#Acute metabolic encephalopathy
� Unclear source
� Possible etiologies include hyponatremia although doubt as severity of hyponatremia is minimal;
� ID consulted
� UA, MRI, EEG negative
- neurology consult�s/o - no lp as per neuro at this time
�Stop cetirizine, cyclobenzaprine, Lexapro
� Haldol IV as needed
#Hyponatremia
-renal consulted
-stop lexapro
�Free water restriction, 40 ounces/day
-stop ivf- advanced diet
#Mechanical fall with Ambulatory dysfunction/right sided pain
� May be related to above, acute metabolic encephalopathy
-CT head, neck x-rays lumbar thoracic and ribs all negative for acute pathology
-Tylenol as needed pain
-PT/OT/case management for SNF placement
#Chronic vertigo
-Continue meclizine as needed
-Patient has been working with home PT
#Hypokalemia
-monitor and replete
#BPH
-Continue oxybutynin 5 mg daily, pro scar 5 mg daily, alfuzosin 10 mg daily
#HTN
-Continue Toprol XL 25 mg at bedtime, losartan 50 mg at bedtime with hold parameters
#HLd
-Patient on Praluent pen 75 Mg q. 14 days
#CAD/CABG
Continue aspirin 81 mg daily, Praluent pen
#DM2
-Accu-Cheks with SSI, check HgbA1c
-Continue metformin 1000 mg twice daily
#GERD
-Continue omeprazole 20 mg daily
#Hypothyroidism/Hx right lower lobe thyroid nodule 3 cm
-Continue Synthroid 25 mcg p.o. daily
#Chronic muscle spasms
-stop Flexeril 10 mg at bedtime due to change in mental status
#Hx breast cancer with right mastectomy
-Continue tamoxifen 20 mg daily
#Depression
-Discontinue Lexapro 10 mg daily due to hyponatremia
#COPD�no acute exacerbation
-Continue Symbicort
#Seasonal allergies
-stop Zyrtec 10 mg at bedtime due to changes in mental status
DVT prophylaxis
HSQ
Anticipated Discharge: 24 - 48 hours
Subjective/Interval History
-
Date of Service: June 15, 2024
mental status improving
Objective Data
-
Labs:
Laboratory Results
06/15/24
06:50
WBC 8.0
Hgb 11.9 L
Hct 32.3 L
Plt Count 138
Sodium 131 L
Potassium 3.4 L
Chloride 99
Carbon Dioxide 25
BUN 16
Creatinine 0.9
Glucose 111 H
Calcium 9.2
Total Bilirubin 1.1
AST 50
ALT 35
Alkaline Phosphatase 44
Vital Signs:
Vital Signs
Temp Pulse Resp BP Pulse Ox
97.7 F 85 16 154/94 95
06/15/24 07:00 06/15/24 07:25 06/15/24 07:25 06/15/24 07:00 06/15/24 07:25
I&O
06/14/24 06/15/24 06/16/24
06:59 06:59 06:59
Intake Total 1400 / 1400 280 / 280 300 / 300
Balance 1400 / 1400 280 / 280 300 / 300
Review of Systems
-
History Source: Patient
All other systems: Not reviewed unless documented
Data Reviewed
-
Diagnostic Radiology: Image personally visualized and interpreted and Report Reviewed by me
CT Scan: Image personally visualized and interpreted and Report Reviewed by me
MRI: Image personally visualized and interpreted and Report Reviewed by me
Labs: Labs Reviewed by me
--- NOTE | 2024-06-15 14:59 | W.PN.NEPH.PH ---
Today's Communication / Plan
-
MS better
monitor labs with FR
wean off IVF
Assessment/Plan
-
IMP:
Worsening hyponatremia
Acute metabolic encephalopathy
Mechanical fall with Ambulatory dysfunction/right sided pain
Chronic vertigo
Febrile Episode
BPH
HTN
HLd
CAD/CABG
DM2
GERD
Hypothyroidism/Hx right lower lobe thyroid nodule 3 cm
Chronic muscle spasms
Hx breast cancer with right mastectomy
Depression
COPD�no acute exacerbation
Seasonal allergies
PLan:
A/w M fall, but with AMS later and hyponatremia
U osmo 583, high ADH state with underlying COPD, SSRI use and ?pain
U na was high while on IVF
TSH normal and no hypotension
cont FR 40 ounces/day,
sodium slightly low 131, cont to trend
pt is now taking PO, hopefully wean off IVF
off SSRI
d/w family at bedside in detail
-
-
Date of Service: June 15, 2024
CC / HPI / ROS
-
Chief Complaint:
hyponatremia
History of Present Illness:
sodium slightly low 131 BP stable
more awake today and eating
no fever
Review of Systems:
no n/v. eating well
no pain
Labs
-
Labs:
WBC 8.0 10^3/uL (4.8-10.8) 06/15/24 06:50
RBC 3.68 10^6/uL (4.70-6.10) L 06/15/24 06:50
Hgb 11.9 g/dL (13.0-18.0) L 06/15/24 06:50
Hct 32.3 % (39.0-52.0) L 06/15/24 06:50
Plt Count 138 10^3/uL (130-400) 06/15/24 06:50
Sodium 131 mmol/L (135-145) L 06/15/24 06:50
Potassium 3.4 mmol/L (3.5-5.1) L 06/15/24 06:50
Chloride 99 mmol/L (98-107) 06/15/24 06:50
Carbon Dioxide 25 mmol/L (22-30) 06/15/24 06:50
BUN 16 mg/dl (9-20) 06/15/24 06:50
Creatinine 0.9 mg/dL (0.7-1.3) 06/15/24 06:50
eGFR > 60.00 06/15/24 06:50
Glucose 111 mg/dl (70-99) H 06/15/24 06:50
Calcium 9.2 mg/dl (8.4-10.2) 06/15/24 06:50
Albumin 3.3 g/dl (3.5-5.0) L 06/15/24 06:50
Physical Exam
-
Vital Signs:
Vital Signs
Temp Pulse Resp BP Pulse Ox
97.7 F 85 16 154/94 95
06/15/24 07:00 06/15/24 07:25 06/15/24 07:25 06/15/24 07:00 06/15/24 07:25
Cardiovascular:: Regular rate and rhythm
Respiratory:: Bilateral: CTA
Lung Excursion:: Normal
Abdomen:: Nontender and Soft
Extremity Edema:: None: Bilateral:
Villalobos Catheter: No
[2024-06-15 15:34] VITALS: BP 151/93
[2024-06-15 16:44] LABS: Glucose - Point of Care 156 mg/dl (70-99)
[2024-06-15] MEDS: GLUCOPHAGE XR EXTENDED RELEASE 1000 MG PO (17:02)
[2024-06-15] MEDS: NOVOLOG FLEXPEN-LOW RESISTANCE 1 UNITS SC (17:03)
[2024-06-15 21:15] LABS: Glucose - Point of Care 191 mg/dl (70-99)
[2024-06-15] MEDS: TOPROL XL 25 MG PO (23:05)
[2024-06-15] MEDS: COZAAR 50 MG PO (23:05)
[2024-06-15 23:20] VITALS: BP 167/84
[2024-06-16] MEDS: ZOSYN 50 IV ×2 (04:17→10:17)
[2024-06-16] MEDS: SYNTHROID 25 MCG PO (04:18)
[2024-06-16] MEDS: SYMBICORT 80/4.5 MCG INHALER 2 PUFF INH ×2 (07:19→19:54)
[2024-06-16 07:32] VITALS: BP 171/89
[2024-06-16 07:54] LABS: Hematocrit 32.7 % (39.0-52.0); Hemoglobin 11.6 g/dL (13.0-18.0); Mean Corp Hgb Conc. 35.5 g/dL (33.0-37.0); Mean Corpuscular Hgb 30.9 pg (27.0-31.0); Mean Corpuscular Volume 87.2 fL (80.0-94.0); Mean Platelet Volume 9.2 fL (7.4-10.4); Platelet Count 154 10^3/uL (130-400); Red Blood Cell Count 3.75 10^6/uL (4.70-6.10); Red Cell Dist. Width 13.2 % (11.5-14.5); White Blood Cell Count 7.5 10^3/uL (4.8-10.8)
[2024-06-16 08:04] LABS: Glucose - Point of Care 152 mg/dl (70-99)
[2024-06-16 09:04] LABS: ALT (SGPT) 40 U/L (0-50); AST (SGOT) 39 U/L (17-59); Albumin 3.3 g/dl (3.5-5.0); Alkaline Phosphatase 50 U/L (38-126); Blood Urea Nitrogen 14 mg/dl (9-20); Calcium 9.3 mg/dl (8.4-10.2); Carbon Dioxide 27 mmol/L (22-30); Chloride 97 mmol/L (98-107); Estimated Creatinine Clearance 65 ml/min; Glucose 140 mg/dl (70-99); Magnesium 1.8 mg/dl (1.6-2.3); Potassium 3.4 mmol/L (3.5-5.1); Sodium 131 mmol/L (135-145); Total Bilirubin 1.1 mg/dl (0.2-1.3); Total Protein 5.4 g/dl (6.3-8.2); eGFR > 60.00
[2024-06-16] MEDS: PROTONIX 40 MG PO (09:51)
[2024-06-16] MEDS: LIDOCAINE 4% PATCH 1 PATCH TOPICAL (09:51)
[2024-06-16] MEDS: VITAMIN B-12 1000 MCG PO (09:52)
[2024-06-16] MEDS: ASPIR LOW (ENTERIC COATED) 81 MG PO (09:52)
[2024-06-16] MEDS: FLOMAX 0.4 MG PO (09:52)
[2024-06-16] MEDS: DITROPAN 5 MG PO (09:52)
[2024-06-16] MEDS: VIBRAMYCIN 100 MG PO (09:52)
[2024-06-16] MEDS: NOLVADEX 20 MG PO (09:52)
[2024-06-16] MEDS: GLUCOPHAGE XR EXTENDED RELEASE 1000 MG PO ×2 (09:52→16:17)
[2024-06-16] MEDS: VITAMIN C 1000 MG PO (09:52)
[2024-06-16] MEDS: VITAMIN D3 (cholecalciferol) 25 MCG PO (09:52)
[2024-06-16] MEDS: HEPARIN 5000 UNITS SC ×3 (09:52→23:07)
[2024-06-16] MEDS: PROSCAR 5 MG PO (09:52)
[2024-06-16] MEDS: NOVOLOG FLEXPEN-LOW RESISTANCE 1 UNITS SC (09:53)
--- NOTE | 2024-06-16 10:59 | W.PN.ID1 ---
Date of Service
Date of Service: June 16, 2024
Today's Communication
- stop antibiotics and follow clinically
Assessment / Plan
Encephalopathy - continued resolution
Resolving acute hyponatremia
Fevers
Polypharmacy
- blood culture x2 in progress no growth to date
- note cessation of [employer] cyclobenzaprine, lexapro and cetirizine; note that meclizine could also contribute but limited alternatives
- stop antibiotics and follow clinically
Chief Complaint
-: Other (encephalopathy)
Subjective / Review of Systems
afebrile
bp stable
no events overnight, no complaints 'I feel fine'
Vital Signs / Physical Exam
Vital Signs
Vital Signs
Temp Pulse Resp BP Pulse Ox
98.6 F 76 20 171/89 91
06/16/24 07:32 06/16/24 07:32 06/16/24 07:32 06/16/24 07:32 06/16/24 07:32
Physical Exam
Constitutional: No Acute Distress
Cardiovascular: Regular Rate and S1/S2; Negative Murmur or Rub
Pulmonary: Clear and Symmetric; Negative Wheezes or Rales
Gastrointestinal: Soft, Non Tender, Non Distended and Normal Bowel Sounds
Skin: Warm and Dry; Negative Rash or Jaundice
Neurological: AO x 3
Objective Data
Lab Data
Lab Results
06/16/24 07:06
06/16/24 07:06
Estimated Creat Clear 65 ml/min 06/16/24 07:06
Total Bilirubin 1.1 mg/dl (0.2-1.3) 06/16/24 07:06
AST 39 U/L (17-59) 06/16/24 07:06
ALT 40 U/L (0-50) 06/16/24 07:06
Alkaline Phosphatase 50 U/L (38-126) 06/16/24 07:06
Most recent labs reviewed.
babesia smear negative
Micro Results:
06/13/24 20:30 Blood Culture - Preliminary
Blood/Venous No Growth in 48 hours- Final report to follow
06/10/24 19:24 Blood Culture - Final
Blood/Venous No Growth - Final Report
06/13/24 19:17 Blood Culture - Preliminary
Blood/Venous No Growth in 48 hours- Final report to follow
06/14/24 12:55 MRSA Screen - Final
Nose No Methicillin Resistant Staphylococcus aureus isolated.
06/15/24 06:50 Blood Parasites Smear - Final
Blood/Venous
Care Review
Plan reviewed with: Physician (Dr Moreno - antibiotics)
--- NOTE | 2024-06-16 11:30 | W.PN.HOSP.TC ---
Today's Communication/Plan
-
DC planning
Assessment / Plan
Assessment / Plan
#Febrile Episodes
#Sepsis with organ dysfunction (acute metabolic encephalopathy)
-F/u SARS-CoV-2 negative;
-f/u blood cultures no growth to date
� ID following
� Initiated on empiric antibiotics
- babesia smear neg
- No fevers further
�can hold on lp at this time as improving
- Abx per ID
#Acute metabolic encephalopathy -Resolved
� Unclear source
� Possible mulitfactorial etiologies include hyponatremia , cyclobenzaparine , and cant rule out concussion
� UA, MRI, EEG negative
- neurology consult�s/o - no lp as per neuro at this time
�Stop cetirizine, cyclobenzaprine, Lexapro
#Hyponatremia
-renal consulted
-stop lexapro
�Free water restriction, 40 ounces/day
-stop ivf- advanced diet
- Improved
#Mechanical fall with Ambulatory dysfunction/right sided pain
-CT head, neck x-rays lumbar thoracic and ribs all negative for acute pathology
-Tylenol as needed pain
-PT/OT/case management for SNF placement
#Chronic vertigo
-Continue meclizine as needed
-Patient has been working with home PT
#BPH
-Continue oxybutynin 5 mg daily, pro scar 5 mg daily, alfuzosin 10 mg daily
#HTN
-Continue Toprol XL 25 mg at bedtime, losartan 50 mg at bedtime with hold parameters
#HLd
-Patient on Praluent pen 75 Mg q. 14 days
#CAD/CABG
Continue aspirin 81 mg daily, Praluent pen
#DM2
-Accu-Cheks with SSI, check HgbA1c
-Continue metformin 1000 mg twice daily
#GERD
-Continue omeprazole 20 mg daily
#Hypothyroidism/Hx right lower lobe thyroid nodule 3 cm
-Continue Synthroid 25 mcg p.o. daily
#Chronic muscle spasms
-stop Flexeril 10 mg at bedtime due to change in mental status
#Hx breast cancer with right mastectomy
-Continue tamoxifen 20 mg daily
#Depression
-Discontinue Lexapro 10 mg daily due to hyponatremia
#COPD�no acute exacerbation
-Continue Symbicort
#Seasonal allergies
-stop Zyrtec 10 mg at bedtime due to changes in mental status
DVT prophylaxis
HSQ
DC planning
If ok from ID standpoint will start dc plan
Anticipated Discharge: Today
Subjective/Interval History
-
Date of Service: June 16, 2024
Patient feels he is back to his baseline.
Voicing no specific complaints.
He thinks his fall was a silly one and mechanical in nature. He was trying to step up a high step at grocery store and fell down.No LOC.
He has been using cane for many years and then transitioned into rolling walker a couple of weeks ago as prescribed by his primary care physician. Has history of chronic neuropathy of lower extremity.. No acute joint issues but has chronic knee
arthritis. Denies any prior history of stroke.
Objective Data
-
Labs:
Laboratory Results
06/16/24
07:06
WBC 7.5
Hgb 11.6 L
Hct 32.7 L
Plt Count 154
Sodium 131 L
Potassium 3.4 L
Chloride 97 L
Carbon Dioxide 27
BUN 14
Creatinine 0.9
Glucose 140 H
Calcium 9.3
Total Bilirubin 1.1
AST 39
ALT 40
Alkaline Phosphatase 50
Vital Signs:
Vital Signs
Temp Pulse Resp BP Pulse Ox
98.6 F 76 20 171/89 91
06/16/24 07:32 06/16/24 07:32 08/19/24 07:32 06/16/24 07:32 06/16/24 07:32
I&O
06/15/24 06/16/24 06/17/24
06:59 06:59 06:59
Intake Total 280 / 280 1240 / 1240
Balance 280 / 280 1240 / 1240
Review of Systems
-
Constitutional: Denies Fever
EENT: Denies Sore Throat
Respiratory: Denies Trouble Breathing
Cardiac: Denies Chest Pain
Abdomen/GI: Denies Abdominal Pain, Nausea or Vomiting
Neuro: Denies Dizzy
Physical Exam
-
General: No Apparent Distress
HEENT: Moist Mucous Membranes
Respiratory: Clear to Auscultation
Cardiac: Regular Rhythm and S1/S2
GI: Soft, Nontender, Nondistended, Normal Bowel Sounds and Other (Bruise in right lower back area ;no tenderness over it. Rt hip movments without pain)
Musculoskeletal: No Edema
Neuro: AO x 3 and No Motor Deficits; Negative Tremors
Psych: Calm; Negative Confused or Agitated
Data Reviewed
-
Labs: Labs Reviewed by me
--- NOTE | 2024-06-16 12:40 | W.PN.NEPH.PH ---
Today's Communication / Plan
-
- Na stable
Assessment/Plan
-
IMP:
Worsening hyponatremia
Acute metabolic encephalopathy
Mechanical fall with Ambulatory dysfunction/right sided pain
Chronic vertigo
Febrile Episode
BPH
HTN
HLd
CAD/CABG
DM2
GERD
Hypothyroidism/Hx right lower lobe thyroid nodule 3 cm
Chronic muscle spasms
Hx breast cancer with right mastectomy
Depression
COPD�no acute exacerbation
Seasonal allergies
PLan:
A/w mechanical fall, but with AMS later and hyponatremia
U osmo 583, high ADH state with underlying COPD, SSRI use and ?pain
U na was high while on IVF
TSH normal and no hypotension
cont FR 40 ounces/day,
sodium stable at 131
pt is now taking PO, off IVF
off SSRI
-
-
Date of Service: June 16, 2024
CC / HPI / ROS
-
Chief Complaint:
hyponatremia
History of Present Illness:
sodium slightly low 131 BP stable
more awake today. AOx3
no fever
Review of Systems:
no n/v. eating well
no pain
Labs
-
Labs:
WBC 7.5 10^3/uL (4.8-10.8) 06/16/24 07:06
RBC 3.75 10^6/uL (4.70-6.10) L 06/16/24 07:06
Hgb 11.6 g/dL (13.0-18.0) L 06/16/24 07:06
Hct 32.7 % (39.0-52.0) L 06/16/24 07:06
Plt Count 154 10^3/uL (130-400) 06/16/24 07:06
Sodium 131 mmol/L (135-145) L 06/16/24 07:06
Potassium 3.4 mmol/L (3.5-5.1) L 06/16/24 07:06
Chloride 97 mmol/L (98-107) L 06/16/24 07:06
Carbon Dioxide 27 mmol/L (22-30) 06/16/24 07:06
BUN 14 mg/dl (9-20) 06/16/24 07:06
Creatinine 0.9 mg/dL (0.7-1.3) 06/16/24 07:06
eGFR > 60.00 06/16/24 07:06
Glucose 140 mg/dl (70-99) H 06/16/24 07:06
Calcium 9.3 mg/dl (8.4-10.2) 06/16/24 07:06
Albumin 3.3 g/dl (3.5-5.0) L 06/16/24 07:06
Physical Exam
-
Vital Signs:
Vital Signs
Temp Pulse Resp BP Pulse Ox
98.6 F 76 20 171/89 91
06/16/24 07:32 06/16/24 07:32 06/16/24 07:32 06/16/24 07:32 06/16/24 07:32
Cardiovascular:: Regular rate and rhythm
Respiratory:: Bilateral: CTA
Lung Excursion:: Normal
Abdomen:: Nontender and Soft
Extremity Edema:: None: Bilateral:
Villalobos Catheter: No
Other Findings::
AOx3 but still quite lethargic
[2024-06-16 13:06] LABS: Glucose - Point of Care 122 mg/dl (70-99)
[2024-06-16] MEDS: NOVOLOG FLEXPEN-LOW RESISTANCE SC ×2 (13:06→16:13)
[2024-06-16 13:24] VITALS: BP 153/86; PULSE 85; O2SAT 97
[2024-06-16 15:41] VITALS: BP 151/84
[2024-06-16 16:08] LABS: Glucose - Point of Care 124 mg/dl (70-99)
--- NOTE | 2024-06-16 16:11 | CM ---
Addendum entered by Jane Snell 06/16/24 16:21:
Per spouse 1st choice is [facility], 2nd is [facility], and [facility], needs Auth for skilled placement.
Original Note:
Chart reviewed and per previous human services case manager notes plan is for skilled placement at [facility]. Will need Auth.
Plan; Skilled placement at [facility] when stable.
[2024-06-16] MEDS: MIRALAX 17 GRAMS PO (17:15)
[2024-06-16] MEDS: COZAAR 50 MG PO (21:17)
[2024-06-16] MEDS: COLACE 100 MG PO (21:17)
[2024-06-16] MEDS: TOPROL XL 25 MG PO (21:23)
[2024-06-16 21:36] LABS: Glucose - Point of Care 139 mg/dl (70-99)
[2024-06-16 23:00] VITALS: BP 161/61
[2024-06-17] MEDS: SYNTHROID 25 MCG PO (06:12)
[2024-06-17 07:00] VITALS: BP 172/113
[2024-06-17] MEDS: SYMBICORT 80/4.5 MCG INHALER 2 PUFF INH (07:18)
[2024-06-17 07:39] LABS: Glucose - Point of Care 133 mg/dl (70-99)
[2024-06-17] MEDS: NOVOLOG FLEXPEN-LOW RESISTANCE SC ×2 (07:40→16:48)
[2024-06-17] MEDS: MIRALAX 17 GRAMS PO (07:58)
[2024-06-17] MEDS: LIDOCAINE 4% PATCH 1 PATCH TOPICAL (07:58)
[2024-06-17] MEDS: HEPARIN SC (07:58)
[2024-06-17] MEDS: COLACE 100 MG PO (07:58)
[2024-06-17] MEDS: VITAMIN B-12 1000 MCG PO (07:59)
[2024-06-17] MEDS: VITAMIN C 1000 MG PO (07:59)
[2024-06-17] MEDS: PROSCAR 5 MG PO (07:59)
[2024-06-17] MEDS: NOLVADEX 20 MG PO (07:59)
[2024-06-17] MEDS: ASPIR LOW (ENTERIC COATED) 81 MG PO (07:59)
[2024-06-17] MEDS: GLUCOPHAGE XR EXTENDED RELEASE 1000 MG PO (07:59)
[2024-06-17] MEDS: VITAMIN D3 (cholecalciferol) 25 MCG PO (07:59)
[2024-06-17] MEDS: FLOMAX 0.4 MG PO (07:59)
[2024-06-17] MEDS: PROTONIX 40 MG PO (07:59)
[2024-06-17] MEDS: DITROPAN 5 MG PO (07:59)
[2024-06-17 08:53] LABS: Hemoglobin 12.5 g/dL (13.0-18.0); Mean Corp Hgb Conc. 35.7 g/dL (33.0-37.0); Mean Corpuscular Volume 86.8 fL (80.0-94.0); Mean Platelet Volume 9.4 fL (7.4-10.4); Platelet Count 175 10^3/uL (130-400); Red Blood Cell Count 4.03 10^6/uL (4.70-6.10); Red Cell Dist. Width 13.4 % (11.5-14.5); White Blood Cell Count 8.5 10^3/uL (4.8-10.8)
[2024-06-17 09:18] LABS: ALT (SGPT) 41 U/L (0-50); AST (SGOT) 35 U/L (17-59); Albumin 3.6 g/dl (3.5-5.0); Alkaline Phosphatase 55 U/L (38-126); Blood Urea Nitrogen 13 mg/dl (9-20); Calcium 9.5 mg/dl (8.4-10.2); Carbon Dioxide 28 mmol/L (22-30); Chloride 96 mmol/L (98-107); Estimated Creatinine Clearance 65 ml/min; Glucose 138 mg/dl (70-99); Magnesium 1.9 mg/dl (1.6-2.3); Sodium 132 mmol/L (135-145); Total Bilirubin 0.8 mg/dl (0.2-1.3); Total Protein 5.7 g/dl (6.3-8.2); eGFR > 60.00
[2024-06-17 09:24] LABS: Potassium 3.3 mmol/L (3.5-5.1)
[2024-06-17 09:54] VITALS: BP 142/97
--- NOTE | 2024-06-17 10:37 | CM ---
Updated referrals sent to chosen SNF options. Awaiting confirmation of acceptance and bed availability. CM sent TT to physician to confirm plan. CM left VM for Jinny at [facility] admissions, patient first choice per chart review. CM will continue
to follow for discharge planning needs.
Plan; SNF
[2024-06-17] MEDS: HEPARIN 5000 UNITS SC ×2 (11:10→16:42)
[2024-06-17 11:38] LABS: Glucose - Point of Care 212 mg/dl (70-99)
--- NOTE | 2024-06-17 12:26 | CM ---
Addendum entered by Giovana Varghese 06/17/24 13:55:
Patient will need ambulance for transportation due to 2 person assist/mod for transfer
Original Note:
Patient seen at bedside with patient and sister in law. Patient completed IMM and signed form placed on chart. Patient for transfer to [facility] pending COVID test and physician made aware of plan. Call to complete auth with [place] and
updated auth is [id number] good from 06/17-06/23 with updates to be called to [phone]. CM updated to Jinny and update provided. Plan to transfer to [facility] with w/c van vs ambulance. Report: [phone]/ .
Plan; transfer to SNF today
Initialized on 06/11/24 16:26 - END OF NOTE
[2024-06-17] MEDS: NOVOLOG FLEXPEN-LOW RESISTANCE 2 UNITS SC (12:31)
[2024-06-17] MEDS: DULCOLAX 10 MG RECTAL (12:31)
[2024-06-17] MEDS: TYLENOL 650 MG PO (12:41)
--- NOTE | 2024-06-17 12:45 | W.PN.ID1 ---
Date of Service
Date of Service: June 17, 2024
Today's Communication
- remains well off of antibiotics
ID service will no longer actively follow this patient please recall for further questions
Assessment / Plan
Encephalopathy - continued resolution
Resolving acute hyponatremia
Fevers
Polypharmacy
- blood culture x2 in progress no growth to date
- note cessation of [employer] cyclobenzaprine, lexapro and cetirizine; note that meclizine could also contribute but limited alternatives
- remains well off of antibiotics
ID service will no longer actively follow this patient please recall for further questions
Chief Complaint
-: Other (encephalopathy)
Subjective / Review of Systems
afebrile
Vital Signs / Physical Exam
Vital Signs
Vital Signs
Temp Pulse Resp BP Pulse Ox
98.2 F 100 16 142/97 94
06/17/24 07:00 06/17/24 09:54 06/17/24 07:21 06/17/24 09:54 06/17/24 08:20
Physical Exam
Constitutional: No Acute Distress
Cardiovascular: Regular Rate and S1/S2; Negative Murmur or Rub
Pulmonary: Clear and Symmetric; Negative Wheezes or Rales
Gastrointestinal: Soft, Non Tender, Non Distended and Normal Bowel Sounds
Skin: Warm and Dry; Negative Rash or Jaundice
Objective Data
Lab Data
Lab Results
06/17/24 06:58
06/17/24 06:58
Estimated Creat Clear 65 ml/min 06/17/24 06:58
Total Bilirubin 0.8 mg/dl (0.2-1.3) 06/17/24 06:58
AST 35 U/L (17-59) 06/17/24 06:58
ALT 41 U/L (0-50) 06/17/24 06:58
Alkaline Phosphatase 55 U/L (38-126) 06/17/24 06:58
Most recent labs reviewed.
Micro Results:
06/13/24 20:30 Blood Culture - Preliminary
Blood/Venous No Growth in 72 hours- Final report to follow
06/13/24 19:17 Blood Culture - Preliminary
Blood/Venous No Growth in 72 hours- Final report to follow
06/10/24 19:24 Blood Culture - Final
Blood/Venous No Growth - Final Report
06/14/24 12:55 MRSA Screen - Final
Nose No Methicillin Resistant Staphylococcus aureus isolated.
06/15/24 06:50 Blood Parasites Smear - Final
Blood/Venous
[2024-06-17 13:09] LABS: COVID-19 Antigen Negative (Negative)
--- NOTE | 2024-06-17 13:19 | W.PN.HOSP.TC ---
Today's Communication/Plan
-
dc
Assessment / Plan
Assessment / Plan
#Febrile Episodes
#Sepsis with organ dysfunction (acute metabolic encephalopathy)
-F/u SARS-CoV-2 negative;
-f/u blood cultures no growth to date
� babesia smear neg
-With negative evaluation so far and resolution of fevers, antibiotics were discontinued yesterday. Remains afebrile and stable despite off of antibiotics.
#Acute metabolic encephalopathy -Resolved
� Unclear source
� Possible mulitfactorial etiologies include hyponatremia , cyclobenzaparine , and cant rule out concussion
� UA, MRI, EEG negative
- neurology consult�s/o - no lp as per neuro at this time
�Stop cetirizine, cyclobenzaprine, Lexapro
#Hyponatremia
-renal consulted
-stop lexapro
�Free water restriction, 40 ounces/day
-stop ivf- advanced diet
- Improved
#Mechanical fall with Ambulatory dysfunction/right sided pain
-CT head, neck x-rays lumbar thoracic and ribs all negative for acute pathology
-Tylenol as needed pain
-PT/OT/case management for SNF placement
#Chronic vertigo
-Continue meclizine as needed
-Patient has been working with home PT
# Constipation -add dulcolax suppository
#BPH
-Continue oxybutynin 5 mg daily, pro scar 5 mg daily, alfuzosin 10 mg daily
#HTN
-Continue Toprol XL 25 mg at bedtime, losartan 50 mg at bedtime with hold parameters
#HLd
-Patient on Praluent pen 75 Mg q. 14 days
#CAD/CABG
Continue aspirin 81 mg daily, Praluent pen
#DM2
-Accu-Cheks with SSI, check HgbA1c
-Continue metformin 1000 mg twice daily
#GERD
-Continue omeprazole 20 mg daily
#Hypothyroidism/Hx right lower lobe thyroid nodule 3 cm
-Continue Synthroid 25 mcg p.o. daily
#Chronic muscle spasms
-stop Flexeril 10 mg at bedtime due to change in mental status
#Hx breast cancer with right mastectomy
-Continue tamoxifen 20 mg daily
#Depression
-Discontinue Lexapro 10 mg daily due to hyponatremia
#COPD�no acute exacerbation
-Continue Symbicort
#Seasonal allergies
-stop Zyrtec 10 mg at bedtime due to changes in mental status
DVT prophylaxis
HSQ
DC to rehab when bed available.
Medically stable for DC.
More than 30 minutes spent in discharge including
Final examination of the patient
Summarizing hospital stay
Instructions for continuing care to all relevant caregivers
Preparation of discharge records, prescriptions, and referral forms
Total time spent (in minutes): 35
Anticipated Discharge: Today
Subjective/Interval History
-
Date of Service: June 17, 2024
Feeling improved.
Denies any fever or chills.
Constipated.
Objective Data
-
Labs:
Laboratory Results
06/17/24
06:58
WBC 8.5
Hgb 12.5 L
Hct 35.0 L
Plt Count 175
Sodium 132 L
Potassium 3.3 L
Chloride 96 L
Carbon Dioxide 28
BUN 13
Creatinine 0.9
Glucose 138 H
Calcium 9.5
Total Bilirubin 0.8
AST 35
ALT 41
Alkaline Phosphatase 55
Vital Signs:
Vital Signs
Temp Pulse Resp BP Pulse Ox
98.2 F 100 16 142/97 94
06/17/24 07:00 06/17/24 09:54 06/17/24 07:21 06/17/24 09:54 06/17/24 08:20
I&O
06/16/24 06/17/24 06/18/24
06:59 06:59 06:59
Intake Total 1240 / 1240 530 / 530
Output Total 150 / 150
Balance 1240 / 1240 530 / 530 -150 / -150
Review of Systems
-
EENT: Denies Sore Throat
Respiratory: Denies Cough or Trouble Breathing
Cardiac: Denies Chest Pain
Abdomen/GI: Denies Abdominal Pain, Nausea or Vomiting
Musculoskeletal: Denies Joint Pain
Neuro: Denies Dizzy
Physical Exam
-
General: No Apparent Distress
HEENT: Moist Mucous Membranes
Respiratory: Clear to Auscultation
Cardiac: Regular Rhythm and S1/S2
GI: Soft and Other (rt lower back bruising as prior)
Neuro: AO x 3
Psych: Calm; Negative Confused or Agitated
Data Reviewed
-
Labs: Labs Reviewed by me
--- NOTE | 2024-06-17 13:30 | W.DS.TRANS ---
DC Summary - Banquet Set Up Person
-
Discharge Instructions:
Discharge Diagnosis/Procedures # Fever -suspected non bacterial ;resolved
#Mechanical fall with Ambulatory dysfunction/
right sided pain
# hyponatremia
Diet Low Cholesterol,Low Fat,Diabetic, Carb
Controlled,Restrict fluids to 48 oz
Activity As tolerated
Driving Restrictions Not until seen by your Dr
Blood Work BMP in one week
Other Services PT,OT
Instructions:
Stand-Alone Forms:
Changes to Home Medications: Yes
Discharge Medications:
DC Medications w/original date entered in [facility]
albuterol sulfate 90 mcg/actuation aerosol inhaler 2 puff inhalation Q6H PRN shortness of breath 06/25/22
alfuzosin 10 mg tablet,extended release 24 hr 10 mg PO DAILY Urinary issue 06/25/22
alirocumab 75 mg/mL subcutaneous pen injector (Praluent Pen) 75 mg SC Q14D High cholesterol 06/25/22
aspirin 81 mg tablet,delayed release 81 mg PO DAILY Blood clot prevention/tx 06/25/22
budesonide-formoterol HFA 80 mcg-4.5 mcg/actuation aerosol inhaler (Symbicort) 2 puff inhalation R BID Lung/breathing issues 06/25/22
cetirizine 10 mg tablet (Zyrtec) 10 mg PO HS Allergies 06/25/22
cholecalciferol (vitamin D3) 25 mcg (1,000 unit) tablet (Vitamin D3) 25 mcg PO DAILY Supplement 06/25/22
coenzyme Q10 100 mg capsule (CoQ-10) 200 mg PO DAILY Supplement 06/25/22
cyanocobalamin (vitamin B-12) 1,000 mcg tablet (Vitamin B-12) 1,000 mcg PO DAILY Supplement 06/25/22
finasteride 5 mg tablet (Proscar) 5 mg PO DAILY Urinary issue 06/25/22
levothyroxine 25 mcg tablet (Synthroid) 25 mcg PO DAILY Thyroid 06/25/22
losartan 50 mg tablet 50 mg PO HS Blood pressure 06/25/22
metformin 1,000 mg tablet,extended release 24hr (osmotic) 1,000 mg PO BID Diabetes 06/25/22
metoprolol succinate 25 mg tablet,extended release 24 hr (Toprol XL) 25 mg PO HS Blood pressure 06/25/22
omeprazole 20 mg capsule,delayed release 20 mg PO DAILY Gastrointestinal issue 06/25/22
oxybutynin chloride 5 mg tablet 5 mg PO DAILY Urinary issue 06/25/22
tamoxifen 20 mg tablet 20 mg PO DAILY Cancer 06/25/22
ascorbic acid (vitamin C) 1,000 mg tablet (Vitamin C) 1,000 mg PO DAILY Supplement 06/09/24
meclizine 12.5 mg tablet 12.5 mg PO BIDPRN PRN dizziness 06/09/24
lidocaine 4 % topical patch 1 patch topical DAILY #0 ea 06/10/24
docusate sodium 100 mg capsule 100 mg PO BID #1 cap 06/17/24
polyethylene glycol 3350 17 gram oral powder packet (HealthyLax) 17 g PO DAILY #1 ea 06/17/24
tramadol 50 mg tablet 25 mg (1/2 x 50 mg) PO Q6HPRN PRN moderate to severe pain #12 tabs 06/17/24
Home Medication Changes
DC - oxycodone,flexeril,escitalopram
New med - tramadol
Pending Results: No
--- NOTE | 2024-06-17 14:35 | W.PN.NEPH.PH ---
Today's Communication / Plan
-
- sign off
Assessment/Plan
-
IMP:
Worsening hyponatremia
Acute metabolic encephalopathy
Mechanical fall with Ambulatory dysfunction/right sided pain
Chronic vertigo
Febrile Episode
BPH
HTN
HLd
CAD/CABG
DM2
GERD
Hypothyroidism/Hx right lower lobe thyroid nodule 3 cm
Chronic muscle spasms
Hx breast cancer with right mastectomy
Depression
COPD�no acute exacerbation
Seasonal allergies
PLan:
A/w mechanical fall, but with AMS later and hyponatremia
U osmo 583, high ADH state with underlying COPD, SSRI use and ?pain
U na was high while on IVF
TSH normal and no hypotension
cont FR 40 ounces/day,
sodium stable at 132
pt is now taking PO, off IVF
off SSRI
please replete K
Nephrology will sign off. Labs 2 weeks after dc. Please have him follow up with us in 6-8 weeks.
-
-
Date of Service: June 17, 2024
CC / HPI / ROS
-
Chief Complaint:
hyponatremia
History of Present Illness:
sodium slightly low 132 BP stable
more awake today. AOx3
no fever
Review of Systems:
no n/v. eating well
no pain
Labs
-
Labs:
WBC 8.5 10^3/uL (4.8-10.8) 06/17/24 06:58
RBC 4.03 10^6/uL (4.70-6.10) L 06/17/24 06:58
Hgb 12.5 g/dL (13.0-18.0) L 06/17/24 06:58
Hct 35.0 % (39.0-52.0) L 06/17/24 06:58
Plt Count 175 10^3/uL (130-400) 06/17/24 06:58
Sodium 132 mmol/L (135-145) L 06/17/24 06:58
Potassium 3.3 mmol/L (3.5-5.1) L 06/17/24 06:58
Chloride 96 mmol/L (98-107) L 06/17/24 06:58
Carbon Dioxide 28 mmol/L (22-30) 06/17/24 06:58
BUN 13 mg/dl (9-20) 06/17/24 06:58
Creatinine 0.9 mg/dL (0.7-1.3) 06/17/24 06:58
eGFR > 60.00 06/17/24 06:58
Glucose 138 mg/dl (70-99) H 06/17/24 06:58
Calcium 9.5 mg/dl (8.4-10.2) 06/17/24 06:58
Albumin 3.6 g/dl (3.5-5.0) 06/17/24 06:58
Physical Exam
-
Vital Signs:
Vital Signs
Temp Pulse Resp BP Pulse Ox
98.2 F 100 16 142/97 94
06/17/24 07:00 06/17/24 09:54 06/17/24 07:21 06/17/24 09:54 06/17/24 08:20
Cardiovascular:: Regular rate and rhythm
Respiratory:: Bilateral: CTA
Lung Excursion:: Normal
Abdomen:: Nontender and Soft
Extremity Edema:: None: Bilateral:
[place] Catheter: No
Other Findings::
AOx3 more awake today
[2024-06-17 15:34] VITALS: BP 132/86
[2024-06-17 16:47] LABS: Glucose - Point of Care 137 mg/dl (70-99)
[2024-06-17] MEDS: GLUCOPHAGE XR EXTENDED RELEASE PO (16:49)
== END 2024-06-17 17:56 | DRG 640 ==
LOC: 4 EAST ACU 10:04
PROVIDERS: Clinical Nurse Specialist Family Health; Nurse Practitioner Adult Health; Physician Assistant; ADMITTING PHYSICIAN Internal Medicine; ATTENDING PHYSICIAN Internal Medicine; CONSULT PHYSICIAN Internal Medicine; CONSULT PHYSICIAN Psychiatry & Neurology Neurology; CONSULT PHYSICIAN Student in an Organized Health Care Education/Training Program; EMERGENCY PHYSICIAN Student in an Organized Health Care Education/Training Program; FAMILY PHYSICIAN Family Medicine
DX: E87.1 Hypo-osmolality and hyponatremia (principal); G93.41 Metabolic encephalopathy; F03.93 Unspecified dementia, unspecified severity, with mood disturbance; F05 Delirium due to known physiological condition; E78.00 Pure hypercholesterolemia, unspecified; I10 Essential (primary) hypertension; E03.9 Hypothyroidism, unspecified; I25.10 Atherosclerotic heart disease of native coronary artery without angina pectoris; E11.9 Type 2 diabetes mellitus without complications; J44.9 Chronic obstructive pulmonary disease, unspecified; N40.0 Benign prostatic hyperplasia without lower urinary tract symptoms; R42 Dizziness and giddiness; M62.838 Other muscle spasm; R07.81 Pleurodynia; E53.8 Deficiency of other specified B group vitamins; J30.2 Other seasonal allergic rhinitis; K21.9 Gastro-esophageal reflux disease without esophagitis; M50.322 Other cervical disc degeneration at C5-C6 level; M54.40 Lumbago with sciatica, unspecified side; R51.9 Headache, unspecified; R50.9 Fever, unspecified; S30.0XXA Contusion of lower back and pelvis, initial encounter; W18.39XA Other fall on same level, initial encounter; Z11.52 Encounter for screening for COVID-19; Z95.1 Presence of aortocoronary bypass graft; Z96.611 Presence of right artificial shoulder joint; Z91.81 History of falling; Z88.8 Allergy status to other drugs, medicaments and biological substances; Z87.891 Personal history of nicotine dependence; Z85.3 Personal history of malignant neoplasm of breast; Z79.899 Other long term (current) drug therapy; Z79.82 Long term (current) use of aspirin; R56.9 Unspecified convulsions; Z79.84 Long term (current) use of oral hypoglycemic drugs; Z79.890 Hormone replacement therapy; Z79.51 Long term (current) use of inhaled steroids
CPT/HCPCS: 70450; 70551; 71045; 71101; 72072; 72110; 72125; 80048; 80053; 81003; 82570; 82607; 82746; 82962; 83036; 83735; 83921; 83935; 84300; 84443; 85025; 85027; 86803; 87015; 87040; 87070; 87207; 87811; 92526; 92610; 93005; 94640; 95816; 97116; 97167; 97530; 97535; 99285

== ENCOUNTER 2025-03-17 19:30 | Emergency (ER) | payer OTHER, SELFPAY ==
[2025-03-17 19:44] VITALS: BP 142/86
[2025-03-17 19:57] LABS: % Basophils 0.3 % (0-2); % Eosinophils 1.6 % (0-6); % Immature Granulocytes 0.6 % (0-0.5); % Lymphocytes 7.9 % (20.5-51.1); % Monocytes 7.8 % (1.7-9.3); % Neutrophils 81.8 % (42.2-75.2); Absolute Eosinophils 0.1 10^3/uL (0-0.7); Absolute Immature Granulocytes 0.1 10^3/uL (0-0.05); Absolute Lymphocytes 0.7 10^3/uL (1.2-3.4); Absolute Monocytes 0.7 10^3/uL (0.1-0.6); Absolute Neutrophils 7.1 10^3/uL (1.4-6.5); Hematocrit 37.7 % (39.0-52.0); Hemoglobin 13.2 g/dL (13.0-18.0); Mean Corpuscular Hgb 30.7 pg (27.0-31.0); Mean Corpuscular Volume 87.7 fL (80.0-94.0); Mean Platelet Volume 9.5 fL (7.4-10.4); Nucleated Red Blood Cells % 0 % (-); Platelet Count 154 10^3/uL (130-400); Red Cell Dist. Width 13.1 % (11.5-14.5); White Blood Cell Count 8.6 10^3/uL (4.8-10.8)
[2025-03-17 20:15] LABS: ALT (SGPT) 17 U/L (0-50); AST (SGOT) 18 U/L (17-59); Albumin 4.4 g/dl (3.5-5.0); Alkaline Phosphatase 65 U/L (38-126); Blood Urea Nitrogen 13 mg/dl (9-20); Calcium 9.7 mg/dl (8.4-10.2); Carbon Dioxide 25 mmol/L (22-30); Chloride 102 mmol/L (98-107); Glucose 214 mg/dl (70-99); Lipase 35 U/L (23-300); Potassium 3.9 mmol/L (3.5-5.1); Sodium 135 mmol/L (135-145); Total Bilirubin 0.7 mg/dl (0.2-1.3); Total Protein 6.8 g/dl (6.3-8.2); eGFR > 60.00
== END 2025-03-17 23:35 ==
LOC: EMR 19:30
PROVIDERS: Emergency Medicine; FAMILY PHYSICIAN Internal Medicine
DX: R11.2 Nausea with vomiting, unspecified (principal); R53.1 Weakness
CPT/HCPCS: 80053; 83690; 85025